=== PATIENT | female | born 1950 | race Caucasian/White ===

== ENCOUNTER → 2020-11-30 10:45 | Outpatient (CLI) | payer MEDICARE, SELFPAY | DX: Z00.00 Encounter for general adult medical examination without abnormal findings (principal) ==

== ENCOUNTER 2022-01-17 12:19 | Outpatient (CLI) | payer MEDICARE, SELFPAY ==
[2022-01-17 13:30] LABS: Absolute Lymphocyte Count 3.15 X10^3/uL (0.83-4.51); Absolute Neutrophil Count 6.3 X10^3/uL (2.0-7.7); Basophil# 0.07 X10^3/uL; Basophil% 0.7 % (0-1); Eosinophils% 2.8 % (0-5); Hemoglobin 14.7 g/dL (12.0-15.0); Lymphocyte # 3.15 X10^3/ul (0.83-4.51); Lymphocyte % 29.9 % (19-41); Mean Corp Hgb Conc 33.4 g/dL (32-36); Mean Corpuscular Hgb 31.5 pg (27.0-32.0); Mean Corpuscular Volume 94.2 fL (81-99); Monocyte# 0.69 X10^3/uL; Monocyte% 6.5 % (0-10); NRBC Flagged by Analyzer 0 % (0-5); Neutrophil % 59.8 % (47-70); Platelet Count 281 K/mm3 (150-450); RBC Distribution Width CV 12.4 % (11.6-14.6); RBC Distribution Width SD 43.3 fl (35.1-43.9); Red Blood Count 4.67 M/mm3 (4.2-5.4); White Blood Count 10.5 K/mm3 (4.4-11.0)
[2022-01-17 14:02] LABS: ALB/GLOB Ratio 0.8 RATIO (0.9-2.4); AST(SGOT) 16 U/L (15-37); Alanine Aminotransfer ALT/SGPT 21 U/L (13-56); Albumin, Serum 3.3 g/dL (3.2-5.0); Alkaline Phosphatase 71 U/L (45-117); Anion Gap 4 (5-15); BUN 15 mg/dL (7-18); BUN/Creat Ratio 23.4 RATIO (10-20); Calcium,Total 8.8 mg/dL (8.5-10.1); Chloride 106 mmol/L (98-107); Cholesterol 179 mg/dL (200); Creatinine, Serum 0.64 mg/dL (0.55-1.02); EST Glomerular Filtration Rate 96 mL/min (>60); Est Glom Filt Rate - Afr Amer 117 mL/min (>60); Globulin 4.1 g/dL (2.2-4.2); Glucose 90 mg/dL (74-106); High Density Lipoprotein 43 mg/dL; Potassium 4.1 mmol/L (3.5-5.1); Protein, Total 7.4 g/dL (6.4-8.2); Sodium Level 141 mmol/L (136-145); Triglycerides 98 mg/dL; Very Low Density Lipoprotein 20 mg/dL (5-40)
== END 2022-01-17 23:59 | disposition home or self-care (01) ==
LOC: LAB 12:20
PROVIDERS: Referring Provider Nurse Practitioner Adult Health; Visit Provider Nurse Practitioner Adult Health
DX: I10 Essential (primary) hypertension (principal)
CPT/HCPCS: 36415; 80053; 80061; 84443; 85025

== ENCOUNTER → 2023-03-16 | Outpatient (CLI) | payer MEDICARE, SELFPAY ==
[2023-03-16 14:59] LABS: Absolute Lymphocyte Count 2.09 X10^3/uL (0.83-4.51); Absolute Neutrophil Count 5.9 X10^3/uL (2.0-7.7); Basophil# 0.05 X10^3/uL; Basophil% 0.6 % (0-1); Eosinophil# 0.27 X10^3/uL; Hematocrit 42.1 % (37-47); Hemoglobin 13.1 g/dL (12.0-15.0); Lymphocyte # 2.09 X10^3/ul (0.83-4.51); Mean Corp Hgb Conc 31.1 g/dL (32-36); Mean Corpuscular Hgb 29.9 pg (27.0-32.0); Mean Corpuscular Volume 96.1 fL (81-99); Monocyte# 0.71 X10^3/uL; Monocyte% 7.8 % (0-10); NRBC Flagged by Analyzer 0 % (0-5); Neutrophil # 5.88 X10^3/uL (2.7-7.7); Neutrophil % 64.8 % (47-70); Platelet Count 370 K/mm3 (150-450); RBC Distribution Width CV 13.2 % (11.6-14.6); RBC Distribution Width SD 46.5 fl (35.1-43.9); Red Blood Count 4.38 M/mm3 (4.2-5.4); White Blood Count 9.1 K/mm3 (4.4-11.0)
[2023-03-16 15:32] LABS: ALB/GLOB Ratio 0.8 RATIO (0.9-2.4); AST(SGOT) 19 U/L (15-37); Alanine Aminotransfer ALT/SGPT 17 U/L (13-56); Albumin, Serum 3.1 g/dL (3.2-5.0); Alkaline Phosphatase 71 U/L (45-117); Anion Gap 6 (5-15); BUN 20 mg/dL (7-18); BUN/Creat Ratio 30.8 RATIO (10-20); Calcium,Total 8.8 mg/dL (8.5-10.1); Chloride 106 mmol/L (98-107); Cholesterol 155 mg/dL (200); Creatinine, Serum 0.65 mg/dL (0.55-1.02); EST Glomerular Filtration Rate 95 mL/min (>60); Est Glom Filt Rate - Afr Amer 115 mL/min (>60); Globulin 4.1 g/dL (2.2-4.2); Glucose 93 mg/dL (74-106); High Density Lipoprotein 45 mg/dL; Potassium 4.2 mmol/L (3.5-5.1); Protein, Total 7.2 g/dL (6.4-8.2); Sodium Level 142 mmol/L (136-145); Thyroid Stim Hormone (TSH) 0.79 uIU/mL (0.358-3.74); Triglycerides 92 mg/dL; Very Low Density Lipoprotein 18 mg/dL (5-40)
== END | disposition home or self-care (01) ==
LOC: LAB 13:30
PROVIDERS: Referring Provider Nurse Practitioner Family; Visit Provider Nurse Practitioner Family
DX: E78.5 Hyperlipidemia, unspecified (principal); I10 Essential (primary) hypertension; E55.9 Vitamin D deficiency, unspecified
CPT/HCPCS: 36415; 80053; 80061; 82306; 84443; 85025

== ENCOUNTER 2023-05-07 09:34 | Emergency (ER) | payer MEDICARE, SELFPAY ==
[2023-05-07 09:36] VITALS: BP 121/78; PULSE 76; RESP 14; TEMP 36.2; O2SAT 93; BMI 23.9
--- NOTE | 2023-05-07 10:17 | VDLE_ITS ---
Reason For Study: swelling Procedure LEFT This is a venous duplex using B-mode, color GSV is normal. flow and spectral Doppler. CFV is compressible, spontaneous, phasic, Exam performed portable in ED. competent, and demonstrates normal The exam was abbreviated due to the COVID 19 augmentation. protocol. FV is compressible, spontaneous, phasic, The exam was diagnostic. competent and demonstrates normal A preliminary report was called and/or faxed augmentation. to the pt's RN. POP V is compressible, spontaneous, phasic, competent and demonstrates normal augmentation. T/P Trunk is compressible. PTV is compressible. LT PerV is compressible. VL/Venous Duplex US, Unilateral Interpretation Summary Deep veins of the left lower extremity are patent and compressible segmentally. There is no evidence of left lower extremity deep vein thrombosis. The left great saphenous vein chalino ears patent and compressible segmentally. Ordering Physician: Jeff Simon Performed By: Narciso Muñiz RVT
--- NOTE | 2023-05-07 10:18 | EKG12_ITS ---
Test Reason : SOB Blood Pressure : / mmHG Vent. Rate : 074 BPM Atrial Rate : 074 BPM P-R Int : 156 ms QRS Dur : 072 ms QT Int : 386 ms P-R-T Axes : 026 070 043 degrees QTc Int : 428 ms Normal sinus rhythm Low voltage QRS Borderline ECG No previous ECGs available Confirmed by JOSHUA GARCIA, SCOTTIE ([id number]), online editor LUDIVINA LOPEZ ([id number]) on 05/19/2023 7:34:43 AM Referred By: Confirmed By:SCOTTIE LEWIS MD
--- NOTE | 2023-05-07 10:19 | CT_ITS ---
STUDY: CTA CHEST REASON FOR EXAM: Female, 72 years old. Pulmonary embolism RADIATION DOSAGE (If Supplied By Facility): CTDIvol = ( 8.02 ) mGy, DLP = ( 238.31 ) mGycm TECHNIQUE: The examination was performed with the intravenous administration of IV 100mL Isovue-370. Post-processing of the angiographic images was performed, with multiplanar reformation and 3D reconstruction. Individualized dose optimization techniques were used for this CT. COMPARISON: None. FINDINGS: Normal enhancement of the main pulmonary artery and right and left pulmonary arteries. Normal enhancement of the bilateral peripheral pulmonary arteries. There is no demonstrated pulmonary embolism. Normal thoracic aorta and visualized great vessels. There is no demonstrated aortic dissection. There are calcifications of the coronary arteries. Moderate cardiomegaly. Moderate size pericardial effusion. There is evidence of a right hilar mass with postobstructive atelectasis and pneumonitis in the right middle lobe and right lower lobe. Bilateral pulmonary nodules. Normal visualized trachea and bronchi. The lungs are well expanded. Bilateral pleural effusions right greater than left with a bibasilar atelectasis. Normal chest wall structures. There are degenerative changes of thoracic spine. 1.7 cm x 0.9 cm nodule in the left adrenal gland. CT/CTA Chest W/WO Contrast IMPRESSION: Bilateral pleural effusions right greater than left with bibasilar atelectasis. Right hilar mass with postobstructive pneumonitis and/or atelectasis involving the right middle lobe and right lower lobes. A neoplastic process should BE ruled out. Moderate-sized pericardial effusion. Electronically Signed: Stiven Philip MD at 12:04 EDT ,
--- NOTE | 2023-05-07 10:22 | ED.VIS.DYS ---
HPI History of Present Illness Chief Complaint: Shortness of Breath Informant: patient Onset/Context/Timing Onset: Month(s) Context: gradual Timing: Continuous Worsened by: - (Cold air) Relieved by: Nothing Associated Symptoms cough; Negative for rhinorrhea, post nasal drip, ear pain, fever, sore throat, chills, sweats, clear sputum, white sputum, yellow sputum or green sputum Chest Pain: Positive for None Narrative Narrative: Patient presents with shortness of breath that has been getting worse over the past few months. Patient states her breathing is worse when she is in cold air. Patient states nothing makes it better. Patient admits to a cough but denies any sputum. Patient states it is gradually gotten worse over the past few months. Patient states it is constant. Patient denies any fevers or chills. Patient denies any sore throat or rhinorrhea. Patient denies any chest pain. Patient states she was in the emergency department at [facility] 4 days ago. Patient states they told her she had anemia and a mass on her lung. Patient states that they wanted to transfer her to [facility] to get a venous duplex of her left lower extremity done. Patient did not want to go to [facility] at that time. Patient went home and then came back here today. PE Risk Factors: Positive for Cancer; Negative for OCP + Smoking + > 35, Prior DVT or PE, Recent immobilization, Recent surgery or Recent travel [facility] Medical History (Updated 05/07/23 @ 13:[address] Jeff Simon DO) Hypertension Allergy/AdvReac Type Severity Reaction Status Date / Time No Known Allergies Allergy Verified 05/07/23 09:36 Surgical History (Updated 05/07/23 @ 10:[address] Jeff Simon DO) Hx of appendectomy Hx of section Hx of dilation and curettage Hx of oophorectomy Hx of tonsillectomy Social History Smoking Status: Current every day smoker tobacco type: cigarettes ROS ROS ED Constitutional Constitutional ED: Denies chills or fever(s) Eyes Eyes: Denies blurry vision or change in vision ENT ENT ED: Denies rhinorrhea or sore throat Cardiovascular Cardiovascular: Denies chest pain or palpitations Respiratory/Chest Respiratory/Chest: Reports cough and dyspnea Gastrointestinal Gastrointestinal: Denies nausea or vomiting Genitourinary Genitourinary ED: Denies dysuria or hematuria Musculoskeletal Musculoskeletal: Reports neck pain; Denies back pain Integumentary Denies abscess or rash Neurologic Neurologic: Denies headache(s) or weakness Allergic/Immunologic Allergic/Immunologic ED: Denies mouth swelling or urticaria EXAM Physical Exam Const Vital Signs: 05/07/23 09:36 05/07/23 09:49 05/07/23 10:29 Temperature 97.1 F L Temperature Source Temporal Pulse Rate 76 73 Respiratory Rate 14 12 Respiratory Effort Short of Breath Respiratory Depth Normal Respiratory Pattern Normal Blood Pressure 121/78 H Blood Pressure Mean 92 Pulse Ox 93 Oxygen Delivery Method Room Air Positive well nourished and well developed General Appearance ED: well developed and NAD HEENT Reports moist mucous membranes Neck supple and no JVD Resp normal respiratory effort Auscultation: wheezes expiratory wheezes and throughout Cardio regular rate and regular rhythm GI normal to inspection, nondistended, normoactive bowel sounds and non-tender Palpation: soft Extremity normal to inspection General Extremety ED: Yes edema; Negative for tenderness General Extremity: edema left lower extremity mild Neuro oriented x3, CN's II-XII intact bilaterally and no sensory deficits noted Sensorium / Orientation: alert Motor Exam: strength 5/5 throughout Psych mental status grossly normal Skin no rashes or lesions noted MDM MDM MDM Narrative Medical decision making narrative: Differential diagnosis includes pulmonary embolism, pneumonia, pneumothorax, congestive heart failure, DVT, cardiac dysrhythmia, cardiac ischemia, anemia, and lung cancer. EKG will be obtained to assess for cardiac dysrhythmia and cardiac ischemia. CTA of the chest will be obtained to assess for pulmonary embolism, aortic dissection, and lung cancer. CBC will be obtained to assess for anemia and leukocytosis. Basic metabolic profile will be obtained to assess for renal function and electrolyte abnormality. BNP will be obtained to assess for congestive heart failure. Serum lactate will be obtained to assess for sepsis. High-sensitivity troponin will be obtained to assess for cardiac ischemia. Venous duplex of the left lower extremity will be obtained to assess for DVT. History & Record Review Discussion w/independent historian: Patient and Family Additional record(s) reviewed:: Prior labs Lab Data Attestation: I reviewed the patient's lab results. Lab results narrative: CBC was reviewed and was within normal limits. Basic metabolic profile was reviewed and was normal. Lactate was reviewed and was normal. High-sensitivity troponin was reviewed and was normal at 36. BNP was reviewed and was slightly elevated at 103. Labs: Laboratory Results - last 24 hr 05/07/23 05/07/23 05/07/23 09:58 10:25 10:57 WBC 10.2 RBC 4.51 Hgb 13.3 Hct 41.9 MCV 92.9 MCH 29.5 MCHC 31.7 L RDW Std Deviation 45.3 H RDW Coeff of Alyssa 13.4 Plt Count 406 MPV 10.6 Immature Gran % (Auto) 0.700 Neut % (Auto) 73.0 H Lymph % (Auto) 16.7 L Alexander % (Auto) 8.1 Eos % (Auto) 1.1 Baso % (Auto) 0.4 Absolute Neuts (auto) 7.5 Absolute Lymphs (auto) 1.71 Nucleated RBC % 0 Sodium 141 Potassium 4.1 Chloride 106 Carbon Dioxide 30.0 Anion Gap 5 BUN 16 Creatinine 0.62 Estim Creat Clear Calc 40.83 Est GFR (MDRD) Af Amer 120 Est GFR (MDRD) Non-Af 99 BUN/Creatinine Ratio 25.7 H Glucose 97 Lactic Acid Cancelled 0.9 Calcium 8.8 Troponin I High Sens 36 B-Natriuretic Peptide 103.0 H Radiography CTA PE Study: No Evidence of PE and No Evidence of Dissection Diagnostic Testing: Clinical Impression(s) from Imaging Studies Chest CTA 05/07/23 10:19 IMPRESSION: Bilateral pleural effusions right greater than left with bibasilar atelectasis. Right hilar mass with postobstructive pneumonitis and/or atelectasis involving the right middle lobe and right lower lobes. A neoplastic process should BE ruled out. Moderate-sized pericardial effusion. Electronically Signed: Stiven Philip MD at 12:04 EDT , CTA of the chest was obtained. There is a right hilar mass with postobstructive pneumonitis and/or atelectasis. This is most likely a neoplastic process. There are bilateral pleural effusions right greater than left and bibasilar atelectasis. There is a moderate-sized pericardial effusion. This was interpreted by the radiologist was also independently reviewed by myself. Venous duplex of the left lower extremity was obtained. There is no evidence of DVT. EKG Initial EKG: Attestation: I personally reviewed and interpreted this EKG as follows: Interpretation: Sinus Rhythm (74) and No Acute Injury Pattern Comments: EKG was obtained. On my independent interpretation, it showed a normal sinus rhythm with a rate of 74. MN interval, QRS interval, and QTc intervals were all normal. [place] was normal. There are no acute ST or T wave changes. There is low voltage across the precordial leads. Prior EKG tracings: not available for review Prior: No Prior Treatment and Re-Evaluation :: Patient was given a DuoNeb aerosol here. Patient stated that this made her cough more and did not help her breathing. Patient was advised of her findings. Case was discussed with Dr. Youngblood from pulmonology. He will follow-up with the patient as an outpatient. Patient was instructed to call his office tomorrow to schedule an appointment. Patient understood and was agreeable with the plan. All questions were answered. Discharge Plan Triage Chief Complaint: Shortness of Breath ED Provider: Jeff Simon Dx/Rx/DC Orders Clinical Impression: Pericardial effusion, Pleural effusion, Mass of right lung Instructions: Diagnosing Chest and Lung ..., ED Pleural Effusion [facility] Referrals: Jake Youngblood DO [Med Staff - Active Staff] - 3-5 Days [facility] - 5-7 Days Disposition Disposition: Home, Self Care
[2023-05-07] MEDS: Ipratropium/Albuterol Sulfate 3 ML AMPUL.NEB INHALATION (10:27)
[2023-05-07 10:29] VITALS: PULSE 73; RESP 12
[2023-05-07 10:45] LABS: Absolute Lymphocyte Count 1.71 X10^3/uL (0.83-4.51); Absolute Neutrophil Count 7.5 X10^3/uL (2.0-7.7); Basophil# 0.04 X10^3/uL; Basophil% 0.4 % (0-1); Eosinophil# 0.11 X10^3/uL; Eosinophils% 1.1 % (0-5); Hematocrit 41.9 % (37-47); Hemoglobin 13.3 g/dL (12.0-15.0); Lymphocyte # 1.71 X10^3/ul (0.83-4.51); Lymphocyte % 16.7 % (19-41); Mean Corp Hgb Conc 31.7 g/dL (32-36); Mean Corpuscular Hgb 29.5 pg (27.0-32.0); Mean Corpuscular Volume 92.9 fL (81-99); Mean Platelet Vol. 10.6 fl (6.2-12.0); Monocyte# 0.83 X10^3/uL; Monocyte% 8.1 % (0-10); NRBC Flagged by Analyzer 0 % (0-5); Neutrophil # 7.48 X10^3/uL (2.7-7.7); Platelet Count 406 K/mm3 (150-450); RBC Distribution Width CV 13.4 % (11.6-14.6); RBC Distribution Width SD 45.3 fl (35.1-43.9); Red Blood Count 4.51 M/mm3 (4.2-5.4); White Blood Count 10.2 K/mm3 (4.4-11.0)
[2023-05-07 10:55] LABS: Anion Gap 5 (5-15); BUN 16 mg/dL (7-18); BUN/Creat Ratio 25.7 RATIO (10-20); Calcium,Total 8.8 mg/dL (8.5-10.1); Chloride 106 mmol/L (98-107); Creatinine, Serum 0.62 mg/dL (0.55-1.02); EST Glomerular Filtration Rate 99 mL/min (>60); Est Glom Filt Rate - Afr Amer 120 mL/min (>60); Estimated Creatinine Clearance 40.83 ml/min; Glucose 97 mg/dL (74-106); Potassium 4.1 mmol/L (3.5-5.1); Sodium Level 141 mmol/L (136-145); Troponin-I HS 36 pg/mL (3.0-54.0)
[2023-05-07 11:30] LABS: Lactic Acid 0.9 mmol/L (0.4-1.9)
[2023-05-07 13:24] VITALS: BP 118/63; PULSE 74; RESP 18; O2SAT 94
== END 2023-05-07 13:26 | disposition home or self-care (01) ==
PROVIDERS: Emergency Provider Emergency Medicine; Visit Provider Emergency Medicine
DX: I31.39 Other pericardial effusion (noninflammatory) (principal); J90 Pleural effusion, not elsewhere classified; R91.8 Other nonspecific abnormal finding of lung field; F17.210 Nicotine dependence, cigarettes, uncomplicated
CPT/HCPCS: 71275; 80048; 83605; 83880; 84484; 85025; 93005; 93971; 94640; 99284; Q9967; A4216

== ENCOUNTER → 2023-05-14 | Outpatient (CLI) | payer MEDICARE, SELFPAY ==
[2023-05-14 11:25] LABS: Platelet Count 375 K/mm3 (150-450)
[2023-05-14 11:33] LABS: International Normalized Ratio 1.1
== END | disposition home or self-care (01) ==
PROVIDERS: Referring Provider Internal Medicine Critical Care Medicine; Visit Provider Internal Medicine Critical Care Medicine
DX: J90 Pleural effusion, not elsewhere classified (principal)
CPT/HCPCS: 36415; 85049; 85610

== ENCOUNTER → 2023-05-19 | Outpatient (CLI) | payer MEDICARE, SELFPAY ==
--- NOTE | 2023-05-19 12:26 | ECHOD_ITS ---
Reason For Study: PERICARDIAL EFFUSION Procedure This was a 2D Doppler, Color Flow transthoracic echocardiogram. Exam performed in department. Left Ventricle Normal LV size. Left ventricular systolic function is normal. The estimated ejection fraction is 60 %. No regional wall motion abnormalities noted. Right Ventricle Normal RV size. Normal systolic function. Atria Normal left atrium. Normal right atrium. Mitral Valve There is moderate mitral annular calcification. Tricuspid Valve Normal tricuspid valve. Mild to moderate (1-2+) tricuspid valve insufficiency. Pulmonary artery systolic pressure is 44 mmHg. Aortic Valve Normal aortic valve. Trisinus/trileaflet aortic valve. Pulmonic Valve Normal pulmonic valve. Great Vessels Normal aortic root. The pulmonary artery is normal size. Normal inferior vena cava. Pericardium/Pleural Moderate pericardial effusion. There are no echocardiographic indications of cardiac tamponade. MMode/2D Measurements & Calculations LVIDd: 4.0 cm IVSd: 1.1 cm LAV(MOD-bp): 48.0 ml LVIDs: 2.7 cm LVPWd: 0.74 cm LAV(MOD-bp) Indexed: 29.2 ml/m2 RVDd: 3.5 cm FS: 33.9 % LAV(MOD-sp2): 52.0 ml LAV(MOD-sp4): 41.8 ml SV(MOD-sp4): 41.5 ml LVAd ap4: 20.6 cm2 LVAd ap2: 24.7 cm2 LVLd ap4: 7.3 cm LVLd ap2: 7.3 cm EDV(MOD-sp4): 48.9 ml EDV(MOD-sp2): 70.5 ml EDV(sp4-el): 49.4 ml EDV(sp2-el): 71.2 ml LVAs ap4: 5.8 cm2 LVAs ap2: 7.6 cm2 LVLs ap4: 4.1 cm LVLs ap2: 6.1 cm ESV(MOD-sp4): 7.4 ml ESV(MOD-sp2): 10.0 ml ESV(sp4-el): 6.9 ml ESV(sp2-el): 8.1 ml EF(MOD-sp4): 84.9 % EF(MOD-sp2): 85.8 % EF(sp4-el): 86.0 % SV(MOD-sp2): 60.5 ml SV(sp4-el): 42.5 ml LA A4 area: 18.1 cm2 LA dimension(2D): 3.7 cm TAPSE: 2.8 cm RA A4 area: 17.8 cm2 Time Measurements MV dec time: 0.25 sec Doppler Measurements & Calculations MV E max don: 91.3 cm/sec Lat Peak E' Don: 4.8 cm/sec Med Peak E' Don: 5.9 cm/sec MV A max don: 125.5 cm/sec E/E' lat: 19.0 E/E' med: 15.5 MV E/A: 0.73 MV V2 max: 131.2 cm/sec MV P1/2t max don: 95.5 cm/sec Ao V2 max: 159.0 cm/sec MV max P.9 mmHg MV P1/2t: 90.3 msec Ao max P.1 mmHg MV V2 mean: 71.1 cm/sec MV dec slope: 309.7 cm/sec2 Ao V2 mean: 113.4 cm/sec MV mean P.4 mmHg Ao mean P.5 mmHg MV V2 VTI: 32.9 cm MVA(P1/2t): 2.4 cm2 Ao V2 VTI: 32.4 cm AV (velocity ratio): 1.1 LV V1 max: 155.1 cm/sec PA V2 max: 72.4 cm/sec TR max don: 300.4 cm/sec LV V1 max P.6 mmHg TR max P.1 mmHg LV V1 mean P.2 mmHg LV V1 mean: 108.9 cm/sec LV V1 VTI: 36.9 cm ECHO/Echo Complete Interpretation Summary Normal LV size. Left ventricular systolic function is normal. The estimated ejection fraction is 60 %. Moderate pericardial effusion. There are no echocardiographic indications of cardiac tamponade. Pulmonary artery systolic pressure is 44 mmHg. Ordering Physician: Jake Youngblood Referring Physician: Jake Youngblood Performed By: Elda Jordan RVT, RDCS and Student
== END | disposition home or self-care (01) ==
LOC: CVS 12:25
PROVIDERS: Referring Provider Internal Medicine Critical Care Medicine; Visit Provider Internal Medicine Critical Care Medicine
DX: I31.39 Other pericardial effusion (noninflammatory) (principal)
CPT/HCPCS: 93306

== ENCOUNTER 2023-05-22 16:12 | Inpatient (IN) | payer MEDICARE, SELFPAY ==
--- NOTE | 2023-05-20 08:40 | HP.PCM_ITS ---
HPI - General General Date of Service: 05/22/23 HPI Narrative The patient is a 72-year-old female who initially presented to the outpatient pulmonary clinic on May 14, 2023 in referral for the evaluation of a lung mass. The patient was evaluated in the emergency department on May 07, 2023 with reported shortness of breath. As part of her work-up in the emergency department, a CTA chest was obtained, which showed no evidence of pulmonary embolism, but did report moderate cardiomegaly, moderate size pericardial effusion, the right hilar lung mass with distal obstructive atelectasis and bilateral pleural effusions. The patient has noted slowly progressing shortness of breath and cough. Her appetite has been relatively poor and she stated that she has lost approximately 6 pounds over the course of the last 2-4 weeks. The patient does have a [id number] smoking history, but is cut back to smoking 0.5 packs of cigarettes per day. In addition to her personal smoking history, the patient did grow up in a smoking household. She was previously employed working at [employer], but more recently is employed at [employer]. 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 She does not currently utilize any inhalers at her baseline. [facility] Medical History (Updated 05/15/23 @ 00:11 by Pierre Snyder) Hypertension Home Medications atenolol 50 mg tablet 50 mg PO DAILY 05/14/23 [History Last Taken Unknown] Allergy/AdvReac Type Severity Reaction Status Date / Time No Known Allergies Allergy Verified 05/07/23 09:36 Surgical History (Updated 05/07/23 @ 10:[address] Jeff Simon DO) Hx of appendectomy Hx of section Hx of dilation and curettage Hx of oophorectomy Hx of tonsillectomy Social History Smoking Status: Current every day smoker tobacco type: cigarettes ROS ROS Narrative 10 systems were reviewed with pertinent positives as noted in the HPI above. Physical Exam Const alert, oriented x3 and no apparent distress General Appearance: cooperative HEENT normocephalic and head/scalp atraumatic Eyes PERRL and EOMs intact bilaterally Neck supple General: trachea midline Resp normal respiratory effort Auscultation: Negative for rales, rhonchi or wheezes Cardio regular rate and regular rhythm GI normal to inspection, nondistended, normoactive bowel sounds Extremity no clubbing, cyanosis or edema Skin General Skin Exam: no breakdown Neuro no focal motor deficits and no sensory deficits noted Psych cooperative and affect normal Assessment & Plan Assessment/Plan (1) Hilar mass: PLAN: The patient presented to the pulmonary medicine clinic with progressive shortness of breath and cough following recent emergency department visit on May 07, during which time, a CTA chest was obtained. That imaging study dem onstrated the presence of a right hilar lung mass with subsequent postobstructive atelectasis, bilateral pleural effusions and a moderate size pericardial effusion. In light of the patient's tobacco abuse history, these findings would certainly be concerning for an underlying primary lung malignancy. I explained to the patient the findings noted on CT imaging and questions were answered accordingly. I did formally recommend that the patient proceed with a mediastinal biopsy via EBUS to facilitate a tissue diagnosis. Risks and benefits of the proposed procedure were discussed with the patient at length. The patient is in agreement to proceed.
[2023-05-22] VITALS (23 sets, daily range): BP systolic 104–178; BP diastolic 53–115; PULSE 72–96; RESP 16–20; TEMP 36.6–37.6; O2SAT 90–95; BMI 24.0; BMI 24.7
--- NOTE | 2023-05-22 | IMM_PTH ---
PATIENT: LAURA HUSAIN LOC: MS3 U#:[id number] AGE/SX: 72/F ROOM: MS309 RE05/23/[address]: Dr. Cassandra Lay MD : 1950 BED: 1 DIS: 05/26/2023 SPEC #: [id number] RECD: 05/27/23 10:26 STATUS: ETELVINA REQ #: [id number] NEY: 05/22/23 00:[address]: Jake Youngblood DEPT: IMMUNOHISTOCHEMISTRY RECD BY: Michelle Min ENTERED: 05/27/23 10:28 SP TYPE: IMMUNO OTHR DR: MD Dr. Haroon Babb MD Dr. Prakash Chand, MD Dr. Paige Pierce, MD Dr. Tanmay Panchabhai, MD Christina Muller SANITARIAN-C [facility] Tissues: Lung, NOS Procedures: CK5-6 (add) TTF1 (add) P40 (add) CK7 (initial) PHYSICIAN & [address] [address] SPECIMEN INFORMATION: Tissue Source: Hilar lung mass Clinical Info: Hilar lung mass Specimen Number: [id number] CPT code: 08087, 33410 x3 METHODOLOGY: Deparaffinized sections of prefer/formalin-fixed tissue or PAP/DQ stained slides are incubated with monoclonal/polyclonal antibodies/oligonucleotide probes. Localization is made via biotin free immunoperoxidase method. Appropriate controls are performed and reacted as expected. Results on target cell population are indicated in the following table: RESULTS: ANTIBODY / CLONE RESULT CK7 (OV-TL12/30) positive TTF-1 (8G7G3/1) negative CK5-6 (D5 & 1684) negative P40 (BC28) negative These tests were developed and their performance characteristics determined by [facility]. They may not have been cleared or approved by the U.S. Food and Drug Administration. The FDA has determined that such clearance or approval is not necessary. The above immunohistochemical/dualISH markers are ordered and reviewed by the Pathologist. INTERPRETATION: Hilar lung mass, biopsy: Non-small cell carcinoma. See comment. ZEENAT:marc 05/28/2023 Comment: The IHC profile is noncontributory for further classification of the tumor. Case has been reviewed in consultation with Dr. Hernandez who concurs with the above diagnosis. IDC:AM
--- NOTE | 2023-05-22 | LUNB_PTH ---
PATIENT: LAURA HUSAIN LOC: MS3 U#:[id number] AGE/SX: 72/F [place] [facility] [place]: Dr. Cassandra Lay MD : 1950 BED: 1 DIS: 05/26/2023 SPEC #: [id number] RECD: 05/22/23 13:56 STATUS: ETELVINA RENETTADev #: [id number] NEY: 05/22/23 00:[address]: Jake Youngblood DEPT: SURGICAL PATHOLOGY RECD BY: Efrain Aguayo ENTERED: 05/22/23 13:57 SP TYPE: LUNG BX OTHR DR: [facility] Tissues: Lung, NOS Procedures: Surgery Specimen Level IV HEADER OPERATION: Endobronchial ultrasound, biopsy, brushings PRE-OP DIAGNOSIS: Hilar lung mass TISSUE SUBMITTED: Hilar lung mass MICROSCOPIC DIAGNOSIS Hilar lung mass, endobronchial biopsy: Non-small cell carcinoma. See comment. ZEENAT:marc 05/25/2023 COMMENT The specimen predominantly consists of unremarkable bronchial tissue with small amount of tumor in the subepithelial tissue. Immunohistochemistry ([id number]) supports the above diagnosis and noncontributory for further classification of the tumor. Please make reference to corresponding cytology specimen ([id number]) EBUS, TBNA, site 7 and 10R with diagnosis of malignant cells present derived from non-small cell carcinoma. Case has been reviewed in consultation with Dr. Hernandez who concurs with the above diagnosis. IDC:AM MICROSCOPIC DESCRIPTION Slides are reviewed. GROSS DESCRIPTION Received in fixative is one container labeled with the patient's name and designated endobronchial biopsy bronchus intermedius. The specimen consists of multiple irregular fragments of light calloway soft tissue that in aggregate measure 1.0 x 0.3 x 0.1 cm. The specimen is totally submitted in one cassette. / ZEENAT:marc 05/22/2023 TC:0 CPT: 17237 ADDENDUM ADDENDUM ADDENDUM ADDENDUM ADDENDUM ADDENDUM ADDENDUM ADDENDUM ADDENDUM ADDENDUM ADDENDUM ADDENDUM ADDENDUM ADDENDUM ADDENDUM ADDENDUM ADDENDUM ADDENDUM ADDENDUM ADDENDUM 07/01/2023 09:28 ADDENDUM 07/01/2023 09:28 ADDENDUM 07/01/2023 09:28 ADDENDUM 07/01/2023 09:28 ADDENDUM 07/01/2023 09:28 PD-L1 (KEYTRUDA) IMMUNOHISTOCHEMICAL ANALYSIS FROM [facility] [facility] RESULTS: Tumor proportion score: 0% / Negative [facility] LUNG CANCER NGS REPORT FROM [facility] RESULT SUMMARY: Abnormal IMMUNOTHERAPY BIOMARKERS: Tumor Mutation [place]: Low (2.4 Mutations / MB) microsatellite instability: MSI Negative (3.25%) PERTINENT NEGATIVE RESULTS: The following genes are NEGATIVE for clinically relevant mutations. Mutational hotspots and surrounding exonic regions were interrogated for DNA level point mutations and indels (fusions not assayed). AKT1, ALK, ATR, BRAF, CHEK1, DDR2, EGFR, ERBB2, ERBB3, FGFR1, MAP2K1, MET, NRAS, NTRK1, PIK3CA, POLD1, POLE, ROS1, TERT, TP53 Please see complete report in e-chart or EMR
--- NOTE | 2023-05-22 | IMM_PTH ---
PATIENT: LAURA HUSAIN LOC: MS3 U#:[id number] AGE/SX: 72/F ROOM: MS309 RE05/23/[address]: Dr. Cassandra Lay MD : 1950 BED: 1 DIS: 05/26/2023 SPEC #: [id number] RECD: 05/25/23 13:26 STATUS: ETELVINA REQ #: [id number] NEY: 05/22/23 00:[address]: Jake Youngblood DEPT: IMMUNOHISTOCHEMISTRY RECD BY: Michelle Min ENTERED: 05/25/23 13:28 SP TYPE: IMMUNO OTHR DR: MD Dr. Haroon Babb MD Dr. Prakash Chand, MD Dr. Paige Pierce, MD Dr. Tanmay Panchabhai, MD Christina Muller, [employer] [facility] Tissues: F - Lung, NOS Procedures: RCC (add) NAPSIN A (add) CK20 (add) CK5-6 (add) CK7 (add) CK8 (add) HEP PAR (add) MD (add) TTF1 (add) Pankeratin (add) P40 (add) ER (initial) CK7 (initial) PHYSICIAN & [place] [id number] SPECIMEN INFORMATION: Tissue Source: F - EBUS, TBNA, site 10R, G - Washings fluid Clinical Info: Hilar mass Specimen Number: [id number] F & G CPT code: 19426 x2, 59504 x14 METHODOLOGY: Deparaffinized sections of prefer/formalin-fixed tissue or PAP/DQ stained slides are incubated with monoclonal/polyclonal antibodies/oligonucleotide probes. Localization is made via biotin free immunoperoxidase method. Appropriate controls are performed and reacted as expected. Results on target cell population are indicated in the following table: RESULTS: ANTIBODY / CLONE RESULT Block F ER (6F11) negative MD (1E2) negative AE1-3 (AE1/AE3/PCK26) positive CK7 (OV-TL12/30) positive CK8 (47vpdlI73) positive CK20 (KS20.8) negative TTF-1 (8G7G3/1) negative Napsin A (Rabbit Polyclonal) negative HepPar (OCh1E5) negative RCC (PN-15) negative CK5-6 (D5 & 1684) negative P40 (BC28) negative Block G CK7 (OV-TL12/30) positive TTF-1 (8G7G3/1) negative CK5-6 (D5 & 1684) negative P40 (BC28) negative These tests were developed and their performance characteristics determined by [facility]. They may not have been cleared or approved by the U.S. Food and Drug Administration. The FDA has determined that such clearance or approval is not necessary. The above immunohistochemical/dualISH markers are ordered and reviewed by the Pathologist. INTERPRETATION: Minesh HYLTON, TBNA, site 10R (cell block): Malignant cells present derived from non-small cell carcinoma. See comment. G. Washings fluid (cell block): Malignant cells present derived from non-small cell carcinoma. See comment. SJ:marc 05/28/2023 Comment: The IHC profile is noncontributory for further classification of the tumor. Case has been reviewed in consultation with Dr. Hernandez who concurs with the above diagnosis. IDC:AM
--- NOTE | 2023-05-22 | ASPIG_PTH ---
PATIENT: LAURA HUSAIN LOC: MS3 U#:[id number] AGE/SX: 72/F [place] [facility] [place]23/[address]: Dr. Cassandra Lay MD : 1950 BED: 1 DIS: 05/26/2023 SPEC #: [id number] RECD: 05/22/23 13:57 STATUS: ETELVINA REDev #: [id number] NEY: 05/22/23 00:[address]: Jake Youngblood DEPT: CYTOLOGY RECD BY: Efrain Aguayo ENTERED: 05/22/23 13:58 SP TYPE: ASP OUT OTHR DR: [facility] Tissues: A - Lung, NOS B - Lung, NOS C - Lung, NOS D - Lung, NOS E - Lung, NOS F - Lung, NOS G - Lung, NOS H - Lung, NOS I - Lung, NOS Procedures: FNA Specimen Adequacy Special Stain Group II Surgery Specimen Level IV Cytology Other HEADER OPERATION: Endobronchial ultrasound, biopsy, brushings PRE-OP DIAGNOSIS: Hilar mass TISSUE SUBMITTED: A - EBUS, TBNA, site 7 #1, B - EBUS, TBNA, site 7 #2, C - EBUS, TBNA, site 10R #3, D - EBUS, TBNA, site 10R #4, E - EBUS, TBNA, site 7, F - EBUS, TBNA, site 10R, G - Wash, H - [place], I - Lung brushings x3 slides DIAGNOSIS CYTOLOGY A. EBUS, TBNA, site 7 #1 (smears): Atypical cells noted. B. EBUS, TBNA, site 7 #2 (smears): Respiratory epithelial cells noted. Negative for malignant cells. C. EBUS, TBNA, site 10R #3 (smears): Positive for malignant cells derived from non-small cell carcinoma. D. EBUS, TBNA, site 10R #4 (smears): Positive for malignant cells derived from non-small cell carcinoma. E. EBUS, TBNA, site 7 fluid (cell block): Malignant cells present derived from non-small cell carcinoma. See comment. F. EBUS, TBNA, site 10R fluid (cytospin and cell block): Malignant cells present derived from non-small cell carcinoma. See comment. G. Washings fluid (cytospin and cell block): Malignant cells present derived from non-small cell carcinoma. See comment. H. [place] fluid (cytospin and cell block): Rare atypical cells noted. I. Lung, brushings (smears): Rare atypical cells noted. SJ:marc 05/25/2023 COMMENT The specimen is evaluated at the time of procedure by Dr. Flores. Rapid On-Site Evaluation: A. EBUS, TBNA, site 7 #1: Atypical cells noted. B. EBUS, TBNA, site 7 #2: Respiratory epithelial cells noted. Negative for malignant cells. C. EBUS, TBNA, site 10R #3: Positive for malignant cells derived from non-small cell carcinoma. D. EBUS, TBNA, site 10R #4: Positive for malignant cells derived from non-small cell carcinoma. E. Respiratory epithelial cells and lymphocytes are also noted. F & G. Immunohistochemistry ([id number]) supports the above diagnosis and non-contributory for further classification of the tumor. Marker studies on the tumor can be performed if clinically indicated. Please notify the laboratory if they are needed. Please correlate with corresponding surgical specimen ([id number]) hilar lung mass, endobronchial biopsy with diagnosis of non-small cell carcinoma. Case has been reviewed in consultation with Dr. Hernandez who concurs with the above diagnosis. IDC:AM CYTOLOGY STUDY Slides are reviewed. CYTOLOGY GROSS A - Received labeled with the patient's name and and designated EBUS, TBNA, site 7 #1. The specimen consists of two stained smears for CHARLY (Rapid On-Site Evaluation). B - Received labeled with the patient's name and and designated EBUS, TBNA, site 7 #2. The specimen consists of two stained smears for CHARLY. C - Received labeled with the patient's name and and designated EBUS, TBNA, site 10R #3. The specimen consists of two stained smears for CHARLY. D - Received labeled with the patient's name and and designated EBUS, TBNA, site 10R #4. The specimen consists of two stained smears for CHARLY. E - Received in RPMI is 20 ml of pink, needle rinsed fluid labeled with the patient's name and and designated EBUS, TBNA, site 7. The specimen is submitted for cell block preparation. F - Received in RPMI is 20 ml of pink, needle rinsed fluid labeled with the patient's name and and designated EBUS, TBNA, site 10R. The specimen is submitted for cell block preparation. G - Received is 60 ml of red cloudy fluid labeled with the patient's name and and designated per the requisition as lung. Submitted for cytology preparation including cell block. H - Received is a metallic endoscopic cytobrush with adherent minute fragments of calloway-red tissue brush in 2 ml of clear red fluid and labeled with the patient's name and and designated per the requisition as brush. The material is dislodged from the brush and submitted for cytology preparation including cell block. I - Received are three smears labeled with the patient's name and designated per the requisition as lung. Submitted for staining. / ZEENAT:marc 05/22/2023 TC:0 CPT: 60900 x2, 81395 x4, 70852 x4, 92691, 71021 x2
[2023-05-22] MEDS: Lactated Ringers 1,000 ML 15 ML IV (10:43)
[2023-05-22] MEDS: Ipratropium/Albuterol Sulfate 3 ML AMPUL.NEB INHALATION ×3 (11:12→19:35)
[2023-05-22] MEDS: Lidocaine Jelly 2% 20 ML Syringe (URO-JET) 1 APPLIC (12:15)
--- NOTE | 2023-05-22 12:55 | OP.BRONCH_ITS ---
Patient Name: Nela Davis Procedure Date: 05/22/2023 11:44 AM Date of : 1950 Age: 72 Procedure: Bronchoscopy Indications: Mediastinal adenopathy, Lung mass suspicious for cancer Providers: Jake Youngblood MD Referring MD: Jake Youngblood MD Complications: No immediate complications Procedure: Pre-Anesthesia Assessment: - A History and Physical has been performed. Patient meds and allergies have been reviewed. The risks and benefits of the procedure and the sedation options and risks were discussed with the patient. All questions were answered and informed consent was obtained. Patient identification and proposed procedure were verified prior to the procedure by the physician and the nurse in the procedure room. Mental Status Examination: alert and oriented. Airway Examination: normal oropharyngeal airway. Respiratory Examination: poor air movement. CV Examination: normal. ASA Grade Assessment: III - A patient with severe systemic disease. After reviewing the risks and benefits, the patient was deemed in satisfactory condition to undergo the procedure. The anesthesia plan was to use general anesthesia. Immediately prior to administration of medications, the patient was re-assessed for adequacy to receive sedatives. The heart rate, respiratory rate, oxygen saturations, blood pressure, adequacy of pulmonary ventilation, and response to care were monitored throughout the procedure. The physical status of the patient was re-assessed after the procedure. After I obtained informed consent, the scope was passed under direct vision. Throughout the procedure, the patient's blood pressure, pulse, and oxygen saturations were monitored continuously. The bronchoscope was introduced through the mouth, via laryngeal mask airway and advanced to the tracheobronchial tree. The procedure was accomplished without difficulty. The patient tolerated the procedure well. Findings: The laryngeal mask airway is in good position. The vocal cords appear normal. The subglottic space is normal. The trachea is of normal caliber. The parisa is sharp. The tracheobronchial tree of the left lung was examined to at least the first subsegmental level. Bronchial mucosa and anatomy are normal; there are no endobronchial lesions, and no secretions. Right Lung Abnormalities: Extrinsic compression was found in the bronchus intermedius. The airway lumen is nearly occluded. The lesion was not traversed. Endobronchial biopsies were performed in the bronchus intermedius using forceps and sent for routine cytology. Two samples were obtained. Guided protected brushings were obtained in the bronchus intermedius with a cytology brush and sent for routine cytology. One sample was obtained. The scope was withdrawn and replaced with the EBUS bronchoscope to accomplish the ultrasound examination. Lymph Nodes: An endobronchial ultrasound endoscope was utilized to systematically examine the subcarinal mediastinum (level 7) and right hilar region (level 10R) in order to assist with guiding the biopsy needle. Lymph node sizing was performed via endobronchial ultrasound for suspected lung cancer. Sampling by transbronchial needle aspiration was also performed using an Olympus EBUS-TBNA 21 gauge needle in the subcarinal mediastinum (level 7) and right hilar region (level 10R) and sent for routine cytology. - The 7 (subcarinal) node was evaluated. Two samples with the needle were obtained. - The 10R (hilar) node was evaluated. Two samples with the needle were obtained. Lymph Nodes: Preliminary cytology was suggestive of non small cell carcinoma (final results are pending) in the right hilar region (level 10R). Impression: - Mediastinal adenopathy - Lung mass suspicious for cancer - The airway examination of the left lung was normal. - Extrinsic compression was found in the bronchus intermedius. - An endobronchial biopsy was performed. - Protected brushings were obtained. - Endobronchial ultrasound was performed. - Lymph node sampling was performed. - Preliminary cytology was suggestive of non small cell carcinoma in node level 10R (final results are pending). Recommendation: - Await biopsy results. Procedure Code(s): --- Professional --- 40857, Bronchoscopy, rigid or flexible, including fluoroscopic guidance, when performed; with endobronchial ultrasound (EBUS) guided transtracheal and/or transbronchial sampling (eg, aspiration[s]/biopsy[ies]), one or two mediastinal and/or hilar lymph node stations or structures 63936, Bronchoscopy, rigid or flexible, including fluoroscopic guidance, when performed; with bronchial or endobronchial biopsy(s), single or multiple sites 01778, Bronchoscopy, rigid or flexible, including fluoroscopic guidance, when performed; with brushing or protected brushings Diagnosis Code(s): --- Professional --- R59.0, Localized enlarged lymph nodes R91.8, Other nonspecific abnormal finding of lung field CPT copyright 2017 [employer]. All rights reserved. The codes documented in this report are preliminary and upon sales and service associate review may be revised to meet current compliance requirements. DO Jake Forman MD 05/22/2023 12:54:35 PM This report has been signed electronically. Number of Addenda: 0 Note Initiated On: 05/22/2023 11:44 AM
[2023-05-22 13:01] LABS: Cytology, Body Fluid / CSF SEE PATHOLOGY REPORT
--- NOTE | 2023-05-22 14:42 | SUR.PHASEI ---
Attempted to wean pt off oxygen. Pt dropped to 73% on room air. Oxygen re-applied.
--- NOTE | 2023-05-22 14:54 | SUR.PHASEI ---
Attempted to wean pt off oxygen. Pt on room air for 10 minutes. O2 levels dropped to 73%. 5L NC reapplied. Pt O2 levels back up to 94%.
--- NOTE | 2023-05-22 16:19 | PCM.HP.STD ---
HPI - General General Date of Admission: 05/22/23 Date of Service: 05/22/23 Chief Complaint: Shortness of breath increased after EBUS, hypoxia HPI Narrative LAURA HUSAIN, is a 72 F who had EBUS by Dr. Youngblood as evaluation for lung mass. Patient is a chronic smoker since teenage started 1 pack/day but now cut down to half pack cigarettes/day. Total 58 pack years of smoking. She has chronic progressive shortness of breath even at rest for last 2 to 3 months which gets worse even on minimal to mild exertion. She also had chronic severe persistent cough mainly dry which makes her short of breath. Denies chest pain tightness or pressure. Denies fever. She was evaluated by Dr. Youngblood in office on 05/14/2023. Prior to that, she had CTA chest in ED on May 07, 2023 for shortness of breath which showed no evidence of pulmonary embolism but right hilar lung mass with distal obstructive atelectasis, bilateral pleural effusion, moderate-sized pericardial effusion and moderate cardiomegaly. Patient was seen in PACU for hypoxia after getting rest. Most recent pulse ox 94% on 4 L of oxygen. She is not tachypneic. Hemodynamically stable. ON LICENSE OF [facility] Medical History Chronic cough High cholesterol History of echocardiogram History of edema History of steroid therapy Hypertension Smoker Wears dentures Home Medications atenolol 50 mg tablet 50 mg PO DAILY 05/14/23 [History Last Taken 05/22/23] Allergy/AdvReac Type Severity Reaction Status Date / Time No Known Allergies Allergy Verified 05/20/23 10:42 Surgical History History of cataract extraction with lens replacement Hx of appendectomy Hx of section Hx of dilation and curettage Hx of oophorectomy Hx of tonsillectomy Social History Smoking Status: Current every day smoker tobacco type: cigarettes Vital Signs Vital Signs Vital Signs: 05/22/23 10:46 05/22/23 10:46 05/22/23 11:11 Temperature 98.1 F Temperature Source Temporal Pulse Rate 72 Pulse Strength Respiratory Rate 18 18 Respiratory Pattern Normal Blood Pressure 128/70 H Blood Pressure Mean 89 Blood Pressure Source Monitor Blood Pressure Position Semi-Fowlers Blood Pressure Location Right Arm Baseline BP Pulse Ox 92 Oxygen Delivery Method Room Air Oxygen Flow Rate (L/min) 05/22/23 12:50 05/22/23 12:58 05/22/23 13:00 Temperature 99.7 F H Temperature Source Temporal Pulse Rate 76 87 Pulse Strength Normal (2+) Respiratory Rate 16 16 Respiratory Pattern Normal Blood Pressure 106/91 H 138/115 H Blood Pressure Mean 96 122 Blood Pressure Source Monitor Monitor Blood Pressure Position Semi-Fowlers Left Lateral Blood Pressure Location Right Arm Right Arm Baseline BP 128/70 128/70 Pulse Ox 92 94 Oxygen Delivery Method Simple Mask Simple Mask Oxygen Flow Rate (L/min) 6 6 05/22/23 13:15 05/22/23 13:30 05/22/23 13:40 Temperature Temperature Source Pulse Rate 89 86 79 Pulse Strength Respiratory Rate 16 18 18 Respiratory Pattern Blood Pressure 178/78 H 165/92 H 121/72 H Blood Pressure Mean 111 116 88 Blood Pressure Source Monitor Monitor Monitor Blood Pressure Position Semi-Fowlers Semi-Fowlers Semi-Fowlers Blood Pressure Location Right Arm Right Arm Right Arm Baseline BP 128/70 128/70 128/70 Pulse Ox 95 93 95 Oxygen Delivery Method Simple Mask Simple Mask Simple Mask Oxygen Flow Rate (L/min) 6 6 6 05/22/23 13:36 05/22/23 13:45 05/22/23 14:00 Temperature Temperature Source Pulse Rate 80 84 83 Pulse Strength Respiratory Rate 18 18 18 Respiratory Pattern Normal Blood Pressure 117/61 109/71 Blood Pressure Mean 79 83 Blood Pressure Source Monitor Monitor Blood Pressure Position Semi-Fowlers Semi-Fowlers Blood Pressure Location Right Arm Right Arm Baseline BP 128/70 128/70 Pulse Ox 92 90 Oxygen Delivery Method Simple Mask Nasal Cannula Oxygen Flow Rate (L/min) 3 3 05/22/23 14:15 05/22/23 14:30 05/22/23 14:45 Temperature Temperature Source Pulse Rate 87 78 76 Pulse Strength Respiratory Rate 18 18 16 Respiratory Pattern Blood Pressure 122/54 H 120/62 104/65 Blood Pressure Mean 76 81 78 Blood Pressure Source Monitor Monitor Monitor Blood Pressure Position Semi-Fowlers Semi-Fowlers Semi-Fowlers Blood Pressure Location Right Arm Right Arm Right Arm Baseline BP 128/70 128/70 128/70 Pulse Ox 91 94 93 Oxygen Delivery Method Nasal Cannula Nasal Cannula Nasal Cannula Oxygen Flow Rate (L/min) 4 4 4 05/22/23 15:00 05/22/23 15:15 05/22/23 15:30 Temperature Temperature Source Pulse Rate 76 76 76 Pulse Strength Respiratory Rate 18 16 18 Respiratory Pattern Blood Pressure 125/65 H 121/70 H 115/63 Blood Pressure Mean 85 87 80 Blood Pressure Source Monitor Monitor Monitor Blood Pressure Position Semi-Fowlers Semi-Fowlers Semi-Fowlers Blood Pressure Location Right Arm Right Arm Right Arm Baseline BP 128/70 128/70 128/70 Pulse Ox 91 90 91 Oxygen Delivery Method Nasal Cannula Nasal Cannula Nasal Cannula Oxygen Flow Rate (L/min) 4 4 4 05/22/23 15:45 05/22/23 16:00 Temperature Temperature Source Pulse Rate 82 72 Pulse Strength Respiratory Rate 18 18 Respiratory Pattern Blood Pressure 116/80 124/68 H Blood Pressure Mean 92 86 Blood Pressure Source Monitor Monitor Blood Pressure Position Semi-Fowlers Semi-Fowlers Blood Pressure Location Right Arm Right Arm Baseline BP 128/70 128/70 Pulse Ox 95 92 Oxygen Delivery Method Nasal Cannula Nasal Cannula Oxygen Flow Rate (L/min) 4 4 Weight Weight: 136 lb Body Mass Index (BMI) 24.0 Physical Exam Narrative General: Alert, Oriented x3, Cooperative HEENT: Atraumatic, PERRLA, EOMI, Normocephalic Oral: Oral mucosa dry. No Gingival or Mucosal Lesions/ Ulcerations Neck: Supple, No JVD, Negative Carotid Bruits Lungs: Air entry diminished in bilateral lung bases. Bilateral coarse rhonchi present. Mild hypoxia. No tachypnea Cardiovascular: Regular rate, Regular Rhythm, Normal S1, Normal S2, No murmurs Abdomen: Bowel Sounds Present, Soft, Non Tender, Non-Distended : No renal angle tenderness. No suprapubic tenderness. Extremities: No edema, Capillary Refill Less than 3 Seconds Skin: No rashes, No breakdown Musculoskeletal: No Tenderness to Palpation of Joints or Extremities. ROM full and intact. Neurological: Cranial nerves II-XII grossly intact, DTR 2+/4 and Symmetrical, Neuro grossly intact Psych/Mental Status: Normal Affect, Appropriate. Assessment & Plan Assessment/Plan (1) Hilar mass: (2) Hypoxia: PLAN: Plan This 72-year-old female being admitted for hypoxia after EBUS. 1. Right hilar mass, mediastinal adenopathy suspicious for cancer with postop hypoxia: [facility] He was showed mediastinal adenopathy, extrinsic compression in the bronchus intermedius. Preliminary cytology from right hilar lymph node sampling suggestive of non-small cell carcinoma. DuoNeb 1 dose now then as needed for shortness of breath. Mucinex DM, incentive spirometry/Pep. Wean oxygen. Home qualification oxygen testing before discharge. Discussed with Dr. Youngblood for overnight admission as an observation. 2. Clinical suspicion of COPD: Patient has chronic severe persistent cough with shortness of breath and smoking history since teenage suggestive of COPD. Never had PFT. PFTs ordered as an outpatient. Follow UP Dr. Youngblood in pulmonary clinic. 3. Hypertension: Patient on atenolol continued. Patient had 2D echo on 05/19/2023 reported EF 60%, moderate pericardial effusion no echo findings history of cardiac tamponade. 1-2+ TR. PASP 44 mmHg. 4. Increased left leg swelling: Patient had venous duplex on 05/11/2023 reported no evidence of left lower extremity DVT. No PE was found on recent CTA chest. VTE prophylaxis moderate risk: Lovenox 40 mg subcu daily. Living will/advanced directive/end of life care: Patient does not have living will or advanced directive. She does not have diabetes. Power of assistant city attorney for health. After discussion of benefits/risks procedures involved with full code, DNR CC arrest and DNR CC, the patient opted for DNRCC arrest with no intubation. Patient patient is very clear that she does not want artificial life support including intubation, tube feed, ventilator and/chest compression, central venous catheter, vasopressor and DC shock if needed Total time spent in [id number] encounter in discussion of advanced directive 17 minutes. Charges/Coding Visit Charges Inpatient E&M: 75235 Init Hosp L3 Procedures Hospitalists Procedures: 05506 Advncd Care Plan 30 Min
[2023-05-22] MEDS: Lactated Ringers 1,000 ML 75 ML IV (18:21)
[2023-05-22 18:30] LABS: Absolute Lymphocyte Count 0.69 X10^3/uL (0.83-4.51); Absolute Neutrophil Count 10.7 X10^3/uL (2.0-7.7); Basophil# 0.02 X10^3/uL; Basophil% 0.2 % (0-1); Hemoglobin 13.1 g/dL (12.0-15.0); Lymphocyte # 0.69 X10^3/ul (0.83-4.51); Lymphocyte % 5.9 % (19-41); Mean Corpuscular Hgb 29.4 pg (27.0-32.0); Mean Corpuscular Volume 92.1 fL (81-99); Mean Platelet Vol. 10.2 fl (6.2-12.0); Monocyte% 0.9 % (0-10); NRBC Flagged by Analyzer 0 % (0-5); Neutrophil # 10.73 X10^3/uL (2.7-7.7); Neutrophil % 92.5 % (47-70); Platelet Count 332 K/mm3 (150-450); RBC Distribution Width CV 14.3 % (11.6-14.6); Red Blood Count 4.45 M/mm3 (4.2-5.4); White Blood Count 11.6 K/mm3 (4.4-11.0)
[2023-05-22 18:38] LABS: Anion Gap 6 (5-15); BUN 18 mg/dL (7-18); BUN/Creat Ratio 25.6 RATIO (10-20); Calcium,Total 9.1 mg/dL (8.5-10.1); Chloride 104 mmol/L (98-107); EST Glomerular Filtration Rate 87 mL/min (>60); Est Glom Filt Rate - Afr Amer 105 mL/min (>60); Estimated Creatinine Clearance 40.83 ml/min; Glucose 184 mg/dL (74-106); Potassium 4.1 mmol/L (3.5-5.1); Sodium Level 138 mmol/L (136-145)
[2023-05-22] MEDS: guaiFENesin/D-Methorphan TAB.SR.12H 2 TABLET PO (19:57)
[2023-05-22] MEDS: Sodium Chloride 0.65% 1 SPRAY SPRAY.BTL 2 SPRAY NASAL (19:58)
[2023-05-22] MEDS: Ensure Plus High Protein 120 ML LIQUID PO (20:16)
[2023-05-23] VITALS (12 sets, daily range): BP systolic 125–142; BP diastolic 73–78; PULSE 23–92; RESP 18–32; TEMP 36.6–37.1; O2SAT 84–95
--- NOTE | 2023-05-23 06:24 | PCM.PN.INT ---
Assessment & Plan Assessment/Plan (1) Hypoxia: PLAN: Plan RECOMMENDATIONS: 1. Wean supplemental oxygen to maintain saturations at or above 90%. 2. Continue bronchodilator therapy. 3. Perform ambulatory oximetry this morning. 4. Set patient up with home-going supplemental O2. 5. Provided that the patient is able to ambulate with appropriate saturations on supplemental O2, she can be discharged home. We will follow-up with her next week in the pulmonary medicine clinic after the results of her EBUS are available. IMPRESSIONS: 1. Hypoxemia The patient was initially brought into the hospital overnight for observation following her EBUS procedure yesterday. Unfortunately, she was able to be weaned from oxygen following the procedure. She has extrinsic compression of her bronchus intermedius which is compromising distal airflow to her right middle and lower lobes. I do suspect that the biopsies performed in this region will likely lead to localized inflammation with blood clot as well, further compromising her respiratory status. I also suspect that she likely has a component of underlying obstructive lung disease. However, outpatient PFTs are still pending. For this reason, it is reasonable to continue bronchodilator therapy and wean supplemental oxygen as tolerated to maintain saturations at or above 90%. 2. 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 The patient will follow-up in the pulmonary medicine clinic next week for final review of her pathology results and to discuss potential treatment options. 3. Nicotine dependency Outpatient PFTs are pending. Continue bronchodilator therapy for now. This note was generated with [employer] dictation software. It may contain incorrect words, spelling, and punctuation that were not noted in checking the note before signing. Subjective Subjective The patient was seen and examined at the bedside this morning. Events from the last 24 hours have been reviewed. The patient is currently afebrile, hemodynamically stable and maintaining appropriate oxygen saturations on 5 L/min via nasal cannula. The patient underwent bronchoscopy yesterday and was noted to be hypoxemic postprocedure. Previously, during her last office visit in the pulmonary medicine clinic 9 days ago, she did not qualify for supplemental oxygen. This morning, the patient does report the ongoing presence of a cough, which is a chronic condition for her. Objective Data Objective Data The patient's most recent lab work, culture data and imaging studies have all been personally reviewed. Vital Signs: Vital Signs Temp Pulse Resp BP Pulse Ox O2 Del Method O2 Flow Rate 98 F 84 18 125/74 H 95 Nasal Cannula 5 05/23/23 05:42 05/23/23 05:42 05/23/23 05:42 05/23/23 05:42 05/23/23 05:42 05/23/23 05:42 05/23/23 05:42 Oxygen Flow Rate (L/min) 5 Oxygen Delivery Method Nasal Cannula Weight: 139 lb 14.4 oz Body Mass Index (BMI) 24.7 Intake & Output: Intake and Output for Last 24 Hours 05/21/23 05/22/23 05/23/23 23:59 23:59 23:59 Intake Total 1200.00 / 1200.00 853.75 / 853.75 Output Total 0 / 0 Balance 1200.00 / 1200.00 853.75 / 853.75 Lab / Micro Data Attestation: I reviewed the patient's lab results. 05/22/23 18:00 05/22/23 18:00 Labs: Laboratory Results - last 24 hr 05/22/23 18:00: WBC 11.6 H, RBC 4.45, Hgb 13.1, Hct 41.0, MCV 92.1, MCH 29.4, MCHC 32.0, RDW Std Deviation 48.0 H, RDW Coeff of Alyssa 14.3, Plt Count 332, MPV 10.2, Immature Gran % (Auto) 0.500, Neut % (Auto) 92.5 H, Lymph % (Auto) 5.9 L, [place] % (Auto) 0.9, Eos % (Auto) 0.0, Baso % (Auto) 0.2, Absolute Neuts (auto) 10.7 H, Absolute Lymphs (auto) 0.69 L, Nucleated RBC % 0, Sodium 138, Potassium 4.1, Chloride 104, Carbon Dioxide 28.0, Anion Gap 6, BUN 18, Creatinine 0.70, Estim Creat Clear Calc 40.83, Est GFR (MDRD) Af Amer 105, Est GFR (MDRD) Non-Af 87, BUN/Creatinine Ratio 25.6 H, Glucose 184 H, Calcium 9.1 Physical Exam Const alert and no apparent distress General Appearance: cooperative HEENT normocephalic and head/scalp atraumatic Eyes PERRL, EOMs intact bilaterally and conjunctivae normal Neck supple General: trachea midline Chest inspection of chest normal Resp Auscultation: diminished lung sounds Cardio regular rate and regular rhythm GI normal to inspection, nondistended, normoactive bowel sounds Extremity no clubbing, cyanosis or edema Skin no rashes or lesions noted Neuro CN's II-XII intact bilaterally, moves all extremities and no focal motor deficits Psych cooperative and affect normal Charges/Coding Visit Charges Inpatient E&M: 35931 Subs Hosp L2
[2023-05-23] MEDS: Ipratropium/Albuterol Sulfate 3 ML AMPUL.NEB INHALATION ×3 (06:52→19:04)
--- NOTE | 2023-05-23 09:08 | RAD_ITS ---
STUDY: X-RAY CHEST REASON FOR EXAM: Female, 72 years old. sob TECHNIQUE: PA and lateral views of the chest. COMPARISON: None. FINDINGS: The lungs are clear and expanded. Moderate right pleural effusion and small left pleural effusion with bibasilar atelectasis. There is moderate cardiac enlargement. Right hilar mass as seen on recent CT. Normal visualized pulmonary arteries. Normal visualized aortic arch and descending thoracic aorta. Normal visualized thoracic spine. Normal visualized ribs, clavicles, and shoulders. There is no demonstrated abnormality of the visualized soft tissue structures of the upper abdomen. RAD/Chest PA and Lateral IMPRESSION: 1. Moderate right pleural effusion and small left pleural effusion with bibasilar atelectasis. 2. Right hilar mass worrisome for bronchogenic carcinoma as seen on recent CT. Electronically Signed: Doc Soto MD at 9:37 EDT ,
[2023-05-23] MEDS: guaiFENesin/D-Methorphan TAB.SR.12H 2 TABLET PO ×2 (09:55→22:00)
[2023-05-23] MEDS: Ensure Plus High Protein 120 ML LIQUID PO ×2 (09:56→22:00)
[2023-05-23] MEDS: Atenolol 50 MG Tablet PO (09:57)
[2023-05-23] MEDS: 0.9% Saline Lock 10 ML Syringe IV ×2 (09:57→22:02)
--- NOTE | 2023-05-23 10:05 | CASEMGMT ---
Addendum entered by Yunier Ashton 05/23/23 11:03: Pt made aware to let staff know if cost of Rx @ discharge are not affordable. Addendum entered by Yunier Ashton 05/23/23 10:56: PCP: Latrice Maharaj Specialists: Dr Youngblood-pulmonology [facility]acy[facility] Insurance: MCR A/B Prescription Benefit:?none Living Will/HPOA:?Pt states she has LW but not HCPOA and she would like to complete that while @ [facility], if SW available. Keshia BERRY, made aware. Pt made aware, if SW unavailable to meet w/her while @ [facility], this can be completed as an OP w/SW. Pt voices appreciation. LNOK: Matthew, son. 6 siblings. Pt states only talks w/3 of them. Granddaughter. Living Arrangements: Lives alone in 2-story home w/2 steps to enter. Denies difficulty w/stairs. Indep w/ADL's and IADL's. Pt states she was very active up until recently and was still working 38 hrs/week. Transportation:?Pt states she has not driven for about 3 weeks. Her sister will take her home @ discharge and can take her to her appts. Pt made aware of [facility] Van transp and provided w/contact info. DME: ? Denies using any DME and denies needs.?As stated below, discussed Home O2 set-up process. ?Pt states no need for further DME at this time.? HHC/SNF: No hx of either. Pt denies needs at this time. Pt wishes to return home and states has no concerns with going home at time of discharge.? Follow for home oxygen needs and any further discharge planning/needs.? Pt voices no further concerns/needs at this time.? Advised pt to ask for?CM?if any further questions/concerns/needs arise.? Voices understanding. PLAN:??Home. Follow for Home Oxygen needs @ d/c. Aviva LERMAN?RN?CM Original Note: RN CM NOTE: RN CM to room. Introduced self and role. Pt resting in bed, awake, alert. Pt states she lives alone and is indep @ home. She states she has been OOB since being @ [facility] and feels steady on her feet and feels safe to return home. She does not have home O2 and does not have a pulse ox. Pt made aware home O2 amb testing to be completed prior to discharge. Discussed home O2 set-up process and questions answered. Discussed DME companies, made aware [employer] is affiliated w/[facility], and pt states to use [employer]. Pt states her income is very limited. Pulse ox given to Marli GARCIA, who will give to pt @ d/c and to instruct on use. Pt made aware this will be provided. Pt states she does not have Rx benefits. RADHA ESQUIVEL to do bailey check on meds @ discharge. Pt states she would like to get her meds @ [facility]. Pt plans to f/u with Dr Youngblood/pulmonology next week as an OP. She denies having other d/c planning needs or concerns. Aviva STEELE RN CM
--- NOTE | 2023-05-23 15:42 | PCM.PN.HOSP ---
Reason for Visit Reason for Visit: Diagnoses Hypoxemia (05/22/23) Other nonspecific abnormal finding of lung field (05/22/23) Subjective Subjective Follow-up for acute hypoxia. Patient required 6 L of oxygen. Objective Data Objective Data Vital Signs: Vital Signs Temp Pulse Resp BP Pulse Ox O2 Del Method O2 Flow Rate 98.6 F 23 L 25 H 139/78 H 91 Nasal Cannula 6 05/23/23 12:00 05/23/23 13:47 05/23/23 15:01 05/23/23 12:00 05/23/23 15:01 05/23/23 15:01 05/23/23 15:01 Oxygen Flow Rate (L/min) [ 7 AMBULATING with Oxygen #2] Oxygen Flow Rate (L/min) [ 5 AMBULATING with Oxygen #1] Oxygen Flow Rate (L/min) [At 5 REST with Oxygen] Oxygen Flow Rate (L/min) 6 Oxygen Delivery Method Nasal Cannula Weight: 139 lb 14.4 oz Body Mass Index (BMI) 24.7 Intake & Output: Intake and Output for Last 24 Hours 05/21/23 05/22/23 05/23/23 23:59 23:59 23:59 Intake Total 1200.00 / 1200.00 1168.75 / 1168.75 Output Total 0 / 0 Balance 1200.00 / 1200.00 1168.75 / 1168.75 Lab / Micro Data 05/22/23 18:00 05/22/23 18:00 Labs: Laboratory Results - last 24 hr 05/22/23 18:00: WBC 11.6 H, RBC 4.45, Hgb 13.1, Hct 41.0, MCV 92.1, MCH 29.4, MCHC 32.0, RDW Std Deviation 48.0 H, RDW Coeff of Alyssa 14.3, Plt Count 332, MPV 10.2, Immature Gran % (Auto) 0.500, Neut % (Auto) 92.5 H, Lymph % (Auto) 5.9 L, [place] % (Auto) 0.9, Eos % (Auto) 0.0, Baso % (Auto) 0.2, Absolute Neuts (auto) 10.7 H, Absolute Lymphs (auto) 0.69 L, Nucleated RBC % 0, Sodium 138, Potassium 4.1, Chloride 104, Carbon Dioxide 28.0, Anion Gap 6, BUN 18, Creatinine 0.70, Estim Creat Clear Calc 40.83, Est GFR (MDRD) Af Amer 105, Est GFR (MDRD) Non-Af 87, BUN/Creatinine Ratio 25.6 H, Glucose 184 H, Calcium 9.1 Radiography Diagnostic Testing: Radiology Impression Chest X-Ray 05/23/23 09:08 IMPRESSION: 1. Moderate right pleural effusion and small left pleural effusion with bibasilar atelectasis. 2. Right hilar mass worrisome for bronchogenic carcinoma as seen on recent CT. Electronically Signed: Doc Soto MD at 9:37 EDT , Physical Exam Narrative Seen and examined. Patient has never been on oxygen before. Currently on 6 L of oxygen. Mild shortness of breath on exertion. Hypoxia probably due to extrinsic compression of bronchus intermedius with possible inflammation due to bronchoscopy. Patient was evaluated by Dr. Youngblood. General: Alert, Oriented x3, Cooperative HEENT: Atraumatic, PERRLA, EOMI, Normocephalic Oral: Oral mucosa dry. No Gingival or Mucosal Lesions/ Ulcerations Neck: Supple, No JVD, Negative Carotid Bruits Lungs: Air entry diminished in bilateral lung bases. Bilateral coarse rhonchi present. No tachypnea but significant hypoxia. Cardiovascular: Regular rate, Regular Rhythm, Normal S1, Normal S2, No murmurs Abdomen: Bowel Sounds Present, Soft, Non Tender, Non-Distended : No renal angle tenderness. No suprapubic tenderness. Extremities: No edema, Capillary Refill Less than 3 Seconds Skin: No rashes, No breakdown Musculoskeletal: No Tenderness to Palpation of Joints or Extremities. ROM full and intact. Neurological: Cranial nerves II-XII grossly intact, DTR 2+/4 and Symmetrical, Neuro grossly intact Psych/Mental Status: Normal Affect, Appropriate. Assessment & Plan Assessment/Plan (1) Hilar mass: (2) Hypoxia: PLAN: Plan This 72-year-old female being admitted for hypoxia after EBUS. 1. Right hilar mass, mediastinal adenopathy suspicious for cancer with postop hypoxia: Patient is being admitted on Medrg floor. He was showed mediastinal adenopathy, extrinsic compression in the bronchus intermedius. Preliminary cytology from right hilar lymph node sampling suggestive of non-small cell carcinoma. DuoNeb 1 dose now then as needed for shortness of breath. Mucinex DM, incentive spirometry/Pep. Wean oxygen. Home qualification oxygen testing before discharge. Discussed with Dr. Youngblood for overnight admission as an observation. 05/23: Patient required 6 L of oxygen. Continuing incentive spirometry and Pep. On Mucinex DM for cough. Try to wean off oxygen. 2. Clinical suspicion of COPD: Patient has chronic severe persistent cough with shortness of breath and smoking history since teenage suggestive of COPD. Never had PFT. PFTs ordered as an outpatient. Follow UP Dr. Youngblood in pulmonary clinic. 05/23: Possible COPD exacerbation with increased hypoxia, shortness of breath and cough: Patient on bronchodilator, IV Solu-Medrol, and bronchopulmonary hygiene. 3. Hypertension: Patient on atenolol continued. Patient had 2D echo on 05/19/2023 reported EF 60%, moderate pericardial effusion no echo findings history of cardiac tamponade. 1-2+ TR. PASP 44 mmHg. 4. Increased left leg swelling: Patient had venous duplex on 05/11/2023 reported no evidence of left lower extremity DVT. No PE was found on recent CTA chest. VTE prophylaxis moderate risk: Lovenox 40 mg subcu daily. Living will/advanced directive/end of life care: Patient does not have living will or advanced directive. She does not have diabetes. Power of computer hardware developer for health. After discussion of benefits/risks procedures involved with full code, DNR CC arrest and DNR CC, the patient opted for DNRCC arrest with no intubation. Patient patient is very clear that she does not want artificial life support including intubation, tube feed, ventilator and/chest compression, central venous catheter, vasopressor and DC shock if needed Charges/Coding Visit Charges Inpatient E&M: 18247 Subs Hosp L2
[2023-05-23] MEDS: Enoxaparin 40 MG/0.4 ML Syringe SC (17:55)
[2023-05-23] MEDS: Methylprednisolone Sod Succ 40 MG/ML VIAL IV ×2 (19:00→22:01)
[2023-05-24] VITALS (8 sets, daily range): BP systolic 149–162; BP diastolic 70–86; PULSE 72–88; RESP 12–26; TEMP 36.6–36.9; O2SAT 92–94
[2023-05-24] MEDS: Acetaminophen 325 MG Tablet 650 MG PO ×3 (00:29→22:27)
[2023-05-24] MEDS: 0.9% Saline Lock 10 ML Syringe IV ×2 (06:04→22:26)
[2023-05-24] MEDS: Methylprednisolone Sod Succ 40 MG/ML VIAL IV ×3 (06:04→22:26)
--- NOTE | 2023-05-24 06:20 | PCM.PN.INT ---
Assessment & Plan Assessment/Plan (1) Hypoxia: PLAN: Plan RECOMMENDATIONS: 1. Wean supplemental oxygen to maintain saturations at or above 90%. 2. Continue bronchodilator therapy and steroids as ordered. 3. In light of the effusion noted on chest imaging, consider ultrasound-guided thoracentesis tomorrow. 4. Orders for pleural fluid studies have been placed. 5. Continue appropriate DVT prophylaxis. 6. Continue nicotine replacement therapy. 7. Perform ambulatory oximetry study prior to consideration for discharge home. IMPRESSIONS: 1. Hypoxemia The patient was initially admitted to the hospital following her EBUS procedure on May 22. Unfortunately, she was able to be weaned from oxygen following the procedure. She has extrinsic compression of her bronchus intermedius which is compromising distal airflow to her right middle and lower lobes. I do suspect that the biopsies performed in this region likely lead to localized inflammation with blood clot as well, further compromising her respiratory status. In addition, the patient has known pleural effusions, right greater than left and what is likely severe underlying obstructive lung disease. However, outpatient PFTs are still pending. For this reason, it is reasonable to continue scheduled bronchodilator therapy and IV steroids. Continue to wean supplemental oxygen to maintain saturations at or above 90%. Recommend ultrasound-guided thoracentesis tomorrow with pleural fluid analysis. 2. 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 The patient will follow-up in the pulmonary medicine clinic next week for final review of her pathology results and to discuss potential treatment options. 3. Nicotine dependency Outpatient PFTs are pending. Continue bronchodilator therapy for now, along with nicotine replacement therapy. This note was generated with [employer] dictation software. It may contain incorrect words, spelling, and punctuation that were not noted in checking the note before signing. Subjective Subjective The patient was seen and examined at the bedside this morning. Events from the last 24 hours have been reviewed. The patient is currently afebrile, hemodynamically stable and maintaining appropriate oxygen saturations on 6 L/min via nasal cannula. The patient apparently desaturated when ambulating yesterday in the hallway and required 7 L/min to maintain appropriate saturations. Chest x-ray demonstrated her previously known right hilar lung mass with associated atelectasis and a moderate right-sided pleural effusion. Objective Data Objective Data The patient's most recent lab work, culture data and imaging studies have all been personally reviewed. Vital Signs: Vital Signs Temp Pulse Resp BP Pulse Ox O2 Del Method O2 Flow Rate 97.8 F 88 12 162/79 H 92 Nasal Cannula 8 05/24/23 02:00 05/24/23 02:00 05/24/23 02:00 05/24/23 02:00 05/24/23 02:00 05/24/23 02:00 05/24/23 02:00 Oxygen Flow Rate (L/min) [ 7 AMBULATING with Oxygen #2] Oxygen Flow Rate (L/min) [ 5 AMBULATING with Oxygen #1] Oxygen Flow Rate (L/min) [At 5 REST with Oxygen] Oxygen Flow Rate (L/min) 8 Oxygen Delivery Method Nasal Cannula Weight: 139 lb 14.4 oz Body Mass Index (BMI) 24.7 Intake & Output: Intake and Output for Last 24 Hours 05/22/23 05/23/23 05/24/23 23:59 23:59 23:59 Intake Total 1200.00 / 1200.00 1168.75 / 1668.75 500 / 500 Output Total 0 / 0 Balance 1200.00 / 1200.00 1168.75 / 1668.75 500 / 500 Lab / Micro Data Attestation: I reviewed the patient's lab results. 05/22/23 18:00 05/22/23 18:00 Labs: Laboratory Results - last 24 hr 05/22/23 18:00: WBC 11.6 H, RBC 4.45, Hgb 13.1, Hct 41.0, MCV 92.1, MCH 29.4, MCHC 32.0, RDW Std Deviation 48.0 H, RDW Coeff of Alyssa 14.3, Plt Count 332, MPV 10.2, Immature Gran % (Auto) 0.500, Neut % (Auto) 92.5 H, Lymph % (Auto) 5.9 L, [place] % (Auto) 0.9, Eos % (Auto) 0.0, Baso % (Auto) 0.2, Absolute Neuts (auto) 10.7 H, Absolute Lymphs (auto) 0.69 L, Nucleated RBC % 0, Sodium 138, Potassium 4.1, Chloride 104, Carbon Dioxide 28.0, Anion Gap 6, BUN 18, Creatinine 0.70, Estim Creat Clear Calc 40.83, Est GFR (MDRD) Af Amer 105, Est GFR (MDRD) Non-Af 87, BUN/Creatinine Ratio 25.6 H, Glucose 184 H, Calcium 9.1 Radiography Diagnostic Testing: Radiology Impression Chest X-Ray 05/23/23 09:08 IMPRESSION: 1. Moderate right pleural effusion and small left pleural effusion with bibasilar atelectasis. 2. Right hilar mass worrisome for bronchogenic carcinoma as seen on recent CT. Electronically Signed: Doc Soto MD at 9:37 EDT , Physical Exam Const alert and no apparent distress General Appearance: cooperative HEENT normocephalic and head/scalp atraumatic Eyes PERRL, EOMs intact bilaterally and conjunctivae normal Neck supple General: trachea midline Chest inspection of chest normal Resp Auscultation: diminished lung sounds Cardio regular rate and regular rhythm GI normal to inspection, nondistended, normoactive bowel sounds Extremity no clubbing, cyanosis or edema Skin no rashes or lesions noted Neuro CN's II-XII intact bilaterally, moves all extremities and no focal motor deficits Psych cooperative and affect normal Charges/Coding Visit Charges Inpatient E&M: 46319 Subs Hosp L2
--- NOTE | 2023-05-24 07:03 | US_ITS ---
PROCEDURE: ULTRASOUND GUIDED THORACENTESIS. DATE: May 25, 2023. INDICATION: Female, 72 years old. Right pleural effusion PHYSICIAN: Stiven Philip M.D. PROCEDURE: The risks, benefits, and alternatives to the procedure were explained to the patient. The specific risks of bleeding, infection, and pneumothorax requiring chest tube insertion were discussed and accepted. Written informed consent was obtained. Ultrasonographic evaluation of the right lower pleural space was carried out. An adequate pocket was identified. The patient was placed in the sitting, upright position. The overlying skin was prepped and draped in sterile fashion. 1% lidocaine was administered subcutaneously for local anesthesia. Under ultrasound guidance, a 5 Georgian thoracentesis needle/catheter system was advanced into the right posterior lower pleural fluid collection. Approximately 1150 mL of lauren-colored fluid was drained. The catheter was removed, and a sterile dressing was applied. A specimen was collected and sent to the laboratory for analysis, as requested by the referring clinician. The patient tolerated the procedure well. A chest x-ray was ordered. US/Thoracentesis W US IMPRESSION: Ultrasound-guided right thoracentesis. Electronically Signed: Stiven Philip MD at 14:28 EDT ,
[2023-05-24] MEDS: Ipratropium/Albuterol Sulfate 3 ML AMPUL.NEB INHALATION ×3 (07:04→19:17)
--- NOTE | 2023-05-24 07:05 | PN.HOSP_ITS ---
Reason for Visit Reason for Visit: Diagnoses Hypoxemia (05/23/23) Other nonspecific abnormal finding of lung field (05/23/23) Subjective Subjective Follow-up for acute hypoxic respiratory failure. Objective Data Objective Data Vital Signs: Vital Signs Temp Pulse Resp BP Pulse Ox O2 Del Method O2 Flow Rate 97.8 F 88 12 162/79 H 92 Nasal Cannula 8 05/24/23 02:00 05/24/23 02:00 05/24/23 02:00 05/24/23 02:00 05/24/23 02:00 05/24/23 02:00 05/24/23 02:00 Oxygen Flow Rate (L/min) [ 7 AMBULATING with Oxygen #2] Oxygen Flow Rate (L/min) [ 5 AMBULATING with Oxygen #1] Oxygen Flow Rate (L/min) [At 5 REST with Oxygen] Oxygen Flow Rate (L/min) 8 Oxygen Delivery Method Nasal Cannula Weight: 139 lb 14.4 oz Body Mass Index (BMI) 24.7 Intake & Output: Intake and Output for Last 24 Hours 05/22/23 05/23/23 05/24/23 23:59 23:59 23:59 Intake Total 1200.00 / 1200.00 1168.75 / 1668.75 500 / 500 Output Total 0 / 0 Balance 1200.00 / 1200.00 1168.75 / 1668.75 500 / 500 Lab / Micro Data 05/22/23 18:00 05/22/23 18:00 Radiography Diagnostic Testing: Radiology Impression Chest X-Ray 05/23/23 09:08 IMPRESSION: 1. Moderate right pleural effusion and small left pleural effusion with bibasilar atelectasis. 2. Right hilar mass worrisome for bronchogenic carcinoma as seen on recent CT. Electronically Signed: Doc Soto MD at 9:37 EDT , Physical Exam Narrative Seen and examined. Patient oxygen requirement went up 8 L high flow oxygen. Patient is short of breath even at rest. Worse on walking. Repeat chest x-ray individually re viewed. Physical exam General: Alert, Oriented x3, Cooperative HEENT: Atraumatic, PERRLA, EOMI, Normocephalic Oral: Oral mucosa moist no Gingival or Mucosal Lesions/ Ulcerations Neck: Supple, No JVD, Negative Carotid Bruits Lungs: Air entry diminished predominantly in the right posterior lower half lung. Moderate right pleural effusion. Mild dyspnea at rest. Significant hypoxia. Cardiovascular: Regular rate, Regular Rhythm, Normal S1, Normal S2, No murmurs Abdomen: Bowel Sounds Present, Soft, Non Tender, Non-Distended : No renal angle tenderness. No suprapubic tenderness. Extremities: No edema, Capillary Refill Less than 3 Seconds Skin: No rashes, No breakdown Musculoskeletal: No Tenderness to Palpation of Joints or Extremities. ROM full and intact. Neurological: Cranial nerves II-XII grossly intact, DTR 2+/4 and Symmetrical, Neuro grossly intact Psych/Mental Status: Normal Affect, Appropriate. Assessment & Plan Assessment/Plan (1) Hilar mass: (2) Hypoxia: PLAN: Plan This 72-year-old female being admitted for hypoxia after EBUS. 1. Right hilar mass, mediastinal adenopathy suspicious for cancer with postop acute hypoxic respiratory failure and right moderate pleural effusion, small left pleural effusion with underlying atelectasis: Patient is being admitted on [facility] floor. He was showed mediastinal adenopathy, extrinsic compression in the bronchus intermedius. Preliminary cytology from right hilar lymph node sampling suggestive of non-small cell carcinoma. DuoNeb 1 dose now then as needed for shortness of breath. Mucinex DM, incentive spirometry/Pep. Wean oxygen. Home qualification oxygen testing before discharge. Discussed with Dr. Youngblood for overnight admission as an observation. 05/23: Patient required 6 L of oxygen. Continuing incentive spirometry and Pep. On Mucinex DM for cough. Try to wean off oxygen. Continue bronchodilator on IV steroid. 05/24: Patient requiring 8 L of oxygen at home. Repeat chest x-ray 05/23 shows similar right hilar mass with moderate right pleural effusion and small left effusion with bibasilar atelectasis similar to the recent CT findings. Ultrasound of the thoracocentesis ordered for tomorrow a.m. along with labs. Continue above treatment including bronchopulmonary hygiene. 2. Clinical suspicion of COPD: Patient has chronic severe persistent cough with shortness of breath and smoking history since teenage suggestive of COPD. Never had PFT. PFTs ordered as an outpatient. 05/23: Possible COPD exacerbation with increased hypoxia, shortness of breath and cough: Patient on bronchodilator, IV Solu-Medrol, and bronchopulmonary hygiene. 05/24: COPD exacerbation:Rapid SARS-CoV-2 antigen negative. Respiratory panel negative. Does not seem infectious cause of hypoxia. 3. Hypertension: Patient on atenolol continued. Patient had 2D echo on 05/19/2023 reported EF 60%, moderate pericardial effusion no echo findings history of cardiac tamponade. 1-2+ TR. PASP 44 mmHg. 4. Increased left leg swelling: Patient had venous duplex on 05/11/2023 reported no evidence of left lower extremity DVT. No PE was found on recent CTA chest. VTE prophylaxis moderate risk: Lovenox 40 mg subcu daily. Living will/advanced directive/end of life care: Patient does not have living will or advanced directive. She does not have diabetes. Power of household appliance repairer for health. After discussion of benefits/risks procedures involved with full code, DNR CC arrest and DNR CC, the patient opted for DNRCC arrest with no intubation. Patient patient is very clear that she does not want artificial life support including intubation, tube feed, ventilator and/chest compression, central venous catheter, vasopressor and DC shock if needed Charges/Coding Visit Charges Inpatient E&M: 01358 Subs Hosp L2
[2023-05-24] MEDS: BMX LIQUID 180 ML 15 ML PO ×2 (07:58→22:28)
[2023-05-24 09:36] LABS: ALB/GLOB Ratio 0.7 RATIO (0.9-2.4); Globulin 4.2 g/dL (2.2-4.2); LDH 358 U/L (84-246); Protein, Total 7.1 g/dL (6.4-8.2)
[2023-05-24 09:45] LABS: International Normalized Ratio 1.2; Prothrombin Time (Protime)PT. 14.8 SECONDS (11.7-14.9)
[2023-05-24 09:46] LABS: Partial Thromboplast Time 27.1 Seconds (24.1-36.2)
[2023-05-24] MEDS: Ensure Plus High Protein 120 ML LIQUID PO ×2 (10:23→14:23)
[2023-05-24] MEDS: guaiFENesin/D-Methorphan TAB.SR.12H 2 TABLET PO ×2 (10:23→22:26)
[2023-05-24] MEDS: Enoxaparin 40 MG/0.4 ML Syringe SC (10:24)
[2023-05-24] MEDS: Atenolol 50 MG Tablet PO (10:24)
[2023-05-25] VITALS (10 sets, daily range): BP systolic 140–162; BP diastolic 55–87; PULSE 62–83; RESP 18–24; TEMP 36.6–37.1; O2SAT 92–98
--- NOTE | 2023-05-25 | FLU_PTH ---
PATIENT: LAURA HUSAIN LOC: MS3 U#:[id number] AGE/SX: 72/F ROOM: [facility] [place] RE05/23/[address]: Dr. Cassandra Lay MD : [id number] BED: 1 DIS: 05/26/2023 SPEC #: [id number] RECD: 05/25/23 14:14 STATUS: ETELVINA REQ #: [id number] NEY: 05/25/23 00:[address]: Cassandra Lay DEPT: CYTOLOGY RECD BY: Kristina Soni ENTERED: 05/26/23 09:51 SP TYPE: Fluid OTHR DR: MD Dr. Jake Babb DO Dr. Lee Ann Baggott, MD Dr. Prakash Chand, MD Dr. Tanmay Panchabhai, MD Christina Muller, IRRIGATION DISTRICT MANAGER-C [facility] Tissues: THORACIC FLUID Procedures: Special Stain Group II Surgery Specimen Level IV Cytospin Fluid HEADER OPERATION: Ultrasound-guided thoracentesis right PRE-OP DIAGNOSIS: Right pleural effusion TISSUE SUBMITTED: Thoracentesis fluid for cytology DIAGNOSIS CYTOLOGY Thoracentesis fluid for cytology (cytospin and cell block): Negative for malignant cells. ZEENAT:marc 05/27/2023 COMMENT Please make reference to additional specimens [id number], hilar lung mass and [id number], EBUS, TBNA, site 7 & 10 R with diagnosis of non-small cell carcinoma. Case has been reviewed in consultation with Dr. Hernandez who concurs with the above diagnosis. IDC:AM CYTOLOGY STUDY Slides are reviewed. CYTOLOGY GROSS Received is 80 ml of yellow cloudy fluid labeled with the patient's name and and designated per the requisition as thoracentesis. Submitted for cytology preparation including cell block. / marc 05/26/2023 TC:5 CPT: 68589, 67331
[2023-05-25] MEDS: Acetaminophen 325 MG Tablet 650 MG PO ×3 (05:45→22:57)
[2023-05-25] MEDS: BMX LIQUID 180 ML 15 ML PO (05:46)
[2023-05-25] MEDS: 0.9% Saline Lock 10 ML Syringe IV (05:47)
[2023-05-25] MEDS: Methylprednisolone Sod Succ 40 MG/ML VIAL IV ×3 (05:47→22:48)
[2023-05-25 06:06] LABS: Absolute Lymphocyte Count 0.97 X10^3/uL (0.83-4.51); Absolute Neutrophil Count 17.9 X10^3/uL (2.0-7.7); Basophil# 0.03 X10^3/uL; Basophil% 0.2 % (0-1); Hematocrit 43.1 % (37-47); Hemoglobin 13.5 g/dL (12.0-15.0); Lymphocyte # 0.97 X10^3/ul (0.83-4.51); Lymphocyte % 4.9 % (19-41); Mean Corp Hgb Conc 31.3 g/dL (32-36); Mean Corpuscular Hgb 28.9 pg (27.0-32.0); Mean Corpuscular Volume 92.3 fL (81-99); Mean Platelet Vol. 10.3 fl (6.2-12.0); Monocyte# 0.66 X10^3/uL; Monocyte% 3.3 % (0-10); NRBC Flagged by Analyzer 0 % (0-5); Neutrophil # 17.87 X10^3/uL (2.7-7.7); Neutrophil % 90.4 % (47-70); Platelet Count 376 K/mm3 (150-450); RBC Distribution Width CV 14.1 % (11.6-14.6); RBC Distribution Width SD 47.6 fl (35.1-43.9); Red Blood Count 4.67 M/mm3 (4.2-5.4); White Blood Count 19.8 K/mm3 (4.4-11.0)
[2023-05-25 06:44] LABS: ALB/GLOB Ratio 0.6 RATIO (0.9-2.4); Anion Gap 5 (5-15); BUN 28 mg/dL (7-18); BUN/Creat Ratio 47.7 RATIO (10-20); Calcium,Total 9.1 mg/dL (8.5-10.1); Chloride 104 mmol/L (98-107); Creatinine, Serum 0.59 mg/dL (0.55-1.02); EST Glomerular Filtration Rate 106 mL/min (>60); Est Glom Filt Rate - Afr Amer 129 mL/min (>60); Estimated Creatinine Clearance 40.83 ml/min; Globulin 4.4 g/dL (2.2-4.2); Glucose 134 mg/dL (74-106); LDH 241 U/L (84-246); Potassium 4.2 mmol/L (3.5-5.1); Protein, Total 7.2 g/dL (6.4-8.2); Sodium Level 138 mmol/L (136-145)
[2023-05-25] MEDS: Ipratropium/Albuterol Sulfate 3 ML AMPUL.NEB INHALATION ×3 (07:02→19:41)
[2023-05-25] MEDS: guaiFENesin/D-Methorphan TAB.SR.12H 2 TABLET PO ×2 (08:30→22:48)
[2023-05-25] MEDS: Atenolol 50 MG Tablet PO (08:30)
--- NOTE | 2023-05-25 09:44 | PN.CC_ITS ---
Assessment & Plan Assessment/Plan (1) Hypoxia: PLAN: Plan RECOMMENDATIONS: 1. Wean supplemental oxygen to maintain saturations at or above 90%. 2. Continue bronchodilator therapy and steroids as ordered. 3. Await results of thoracentesis 4. Orders for pleural fluid studies have been placed. 5. Continue appropriate DVT prophylaxis. 6. Continue nicotine replacement therapy. 7. Perform ambulatory oximetry study prior to consideration for discharge home. IMPRESSIONS: 1. Hypoxemia The patient was initially admitted to the hospital following her EBUS procedure on May 22. Unfortunately, she was able to be weaned from oxygen following the procedure. She has extrinsic compression of her bronchus intermedius which is compromising distal airflow to her right middle and lower lobes. Clinical suspicion is pleural effusion is worsening this extrinsic compression leading to poor right lower lobe VQ match. High clinical suspicion for baseline obstructive lung disease. For this reason, it is reasonable to co ntinue scheduled bronchodilator therapy and IV steroids. Continue to wean supplemental oxygen to maintain saturations at or above 90%. Await ultrasound- guided thoracentesis today with pleural fluid analysis. 2. 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 The patient will follow-up in the pulmonary medicine clinic next week for final review of her pathology results and to discuss potential treatment options. If found to be stage IV with positive pleural fluid studies for cytology, may be candidate for endobronchial stenting. This would be evaluated as an outpatient. 3. Nicotine dependency Outpatient PFTs are pending. Continue bronchodilator therapy for now, along with nicotine replacement therapy. This note was generated with [employer] dictation software. It may contain incorrect words, spelling, and punctuation that were not noted in checking the note before signing. Subjective Subjective Patient did okay overnight. Patient subjectively feels unchanged compared to previous. Patient does have a cough, but reports little improvement. No hemoptysis has been reported. Patient still requiring significant amounts of supplemental oxygen to maintain saturations Objective Data Objective Data Vital Signs: Vital Signs Temp Pulse Resp BP Pulse Ox O2 Del Method O2 Flow Rate 37.1 C 82 22 H 162/87 H 94 High Flow 8 05/25/23 08:00 05/25/23 08:00 05/25/23 08:00 05/25/23 08:00 05/25/23 08:00 05/25/23 08:00 05/25/23 08:00 FiO2 8 05/24/23 14:00 Oxygen Flow Rate (L/min) [ 7 AMBULATING with Oxygen #2] Oxygen Flow Rate (L/min) [ 5 AMBULATING with Oxygen #1] Oxygen Flow Rate (L/min) [At 5 REST with Oxygen] Oxygen Flow Rate (L/min) 8 Oxygen Delivery Method High Flow Weight: 63.458 kg Body Mass Index (BMI) 24.7 Intake & Output: Intake and Output for Last 24 Hours 05/23/23 05/24/23 05/25/23 23:59 23:59 23:59 Intake Total 1168.75 / 1668.75 1450 / 1950 700 / 700 Balance 1168.75 / 1668.75 1450 / 1950 700 / 700 Lab / Micro Data Attestation: I reviewed the patient's lab results. 05/25/23 05:42 05/25/23 05:42 Labs: Laboratory Results - last 24 hr 05/24/23 09:30: PT 14.8, INR 1.2, APTT 27.1 05/25/23 05:42: WBC 19.8 H, RBC 4.67, Hgb 13.5, Hct 43.1, MCV 92.3, MCH 28.9, MCHC 31.3 L, RDW Std Deviation 47.6 H, RDW Coeff of Alyssa 14.1, Plt Count 376, MPV 10.3, Immature Gran % (Auto) 1.200 H, Neut % (Auto) 90.4 H, Lymph % (Auto) 4.9 L , [place] % (Auto) 3.3, Eos % (Auto) 0.0, Baso % (Auto) 0.2, Absolute Neuts (auto) 17.9 H, Absolute Lymphs (auto) 0.97, Nucleated RBC % 0, Sodium 138, Potassium 4.2, Chloride 104, Carbon Dioxide 29.0, Anion Gap 5, BUN 28 H, Creatinine 0.59, Estim Creat Clear Calc 40.83, Est GFR (MDRD) Af Amer 129, Est GFR (MDRD) Non-Af 106, BUN/Creatinine Ratio 47.7 H, Glucose 134 H, Calcium 9.1, Lactate Dehydrogenase 241, Total Protein 7.2, Globulin 4.4 H, Albumin/Globulin Ratio 0.6 L Micro: Microbiology 07/30/23 07:15 Mucosa - Nasopharyngeal Respiratory Panel (PCR) - Final 05/24/23 07:45 Nasal Secretion SARS-CoV-2 Antigen (Rapid) - Final Physical Exam Const alert, oriented x3 and no apparent distress General Appearance: cooperative HEENT normocephalic and head/scalp atraumatic HEENT Narrative: Nasal cannula in place Eyes PERRL, EOMs intact bilaterally and conjunctivae normal Neck supple General: trachea midline Chest inspection of chest normal Resp normal respiratory effort Auscultation: diminished lung sounds; Negative for rales, rhonchi or wheezes Cardio regular rate, regular rhythm, no murmurs, no rub and no gallops GI normal to inspection, nondistended, normoactive bowel sounds Extremity no clubbing, cyanosis or edema Skin no rashes or lesions noted General Skin Exam: no breakdown Neuro CN's II-XII intact bilaterally, moves all extremities, no focal motor deficits and no sensory deficits noted Psych cooperative and affect normal Charges/Coding Visit Charges Inpatient E&M: 37721 Subs Hosp L3
[2023-05-25] MEDS: Ensure Plus High Protein 120 ML LIQUID PO ×3 (10:46→22:48)
--- NOTE | 2023-05-25 13:17 | CASEMGMT ---
Social Work SW assisted pt in completing POA for healthcare, pt put her sister and son as POA and alternate. SW gave pt the original and copies, and copy placed on chart. AMERICA Reece
--- NOTE | 2023-05-25 13:33 | CASEMGMT ---
Social Work Pt completed POA w/SW, and asked her sister to bring in LW. AMERICA Reece
[2023-05-25] MEDS: Lidocaine 2% (20 ml mdv) 20 ML Vial INFILT (13:50)
--- NOTE | 2023-05-25 13:55 | RAD_ITS ---
STUDY: X-RAY CHEST REASON FOR EXAM: Female, 72 years old. Post thoracentesis TECHNIQUE: AP inspiration and expiration views. COMPARISON: Comparison is made with prior study dated May 23, 2023. FINDINGS: The patient is status post right thoracentesis. No evidence of a pneumothorax. Persistent right infrahilar consolidation and/or mass. RAD/Chest Insp/Exp 2 View IMPRESSION: No evidence of pneumothorax on the post right thoracentesis radiographs. Electronically Signed: Stiven Philip MD at 14:29 EDT ,
--- NOTE | 2023-05-25 14:15 | PN.HOSP_ITS ---
Reason for Visit Reason for Visit: Diagnoses Hypoxemia (05/23/23) Other nonspecific abnormal finding of lung field (05/23/23) Subjective Subjective Patient seen status post thoracentesis, reports not coughing as much and her breathing actually feels a little bit better Objective Data Objective Data Vital Signs: Vital Signs Temp Pulse Resp BP Pulse Ox O2 Del Method O2 Flow Rate 98.7 F 66 22 H 162/87 H 94 High Flow 8 05/25/23 08:00 05/25/23 12:47 05/25/23 12:47 05/25/23 08:00 05/25/23 08:00 05/25/23 08:00 05/25/23 08:00 FiO2 8 05/24/23 14:00 Oxygen Flow Rate (L/min) [ 7 AMBULATING with Oxygen #2] Oxygen Flow Rate (L/min) [ 5 AMBULATING with Oxygen #1] Oxygen Flow Rate (L/min) [At 5 REST with Oxygen] Oxygen Flow Rate (L/min) 8 Oxygen Delivery Method High Flow Weight: 63.458 kg Body Mass Index (BMI) 24.7 Intake & Output: Intake and Output for Last 24 Hours 05/23/23 05/24/23 05/25/23 23:59 23:59 23:59 Intake Total 1168.75 / 1668.75 1450 / 1950 700 / 700 Balance 1168.75 / 1668.75 1450 / 1950 700 / 700 Lab / Micro Data 05/25/23 05:42 05/25/23 05:42 Labs: Laboratory Results - last 24 hr 05/25/23 05:42: WBC 19.8 H, RBC 4.67, Hgb 13.5, Hct 43.1, MCV 92.3, MCH 28.9, MCHC 31.3 L, RDW Std Deviation 47.6 H, RDW Coeff of Alyssa 14.1, Plt Count 376, MPV 10.3, Immature Gran % (Auto) 1.200 H, Neut % (Auto) 90.4 H, Lymph % (Auto) 4.9 L , [place] % (Auto) 3.3, Eos % (Auto) 0.0, Baso % (Auto) 0.2, Absolute Neuts (auto) 17.9 H, Absolute Lymphs (auto) 0.97, Nucleated RBC % 0, Sodium 138, Potassium 4.2, Chloride 104, Carbon Dioxide 29.0, Anion Gap 5, BUN 28 H, Creatinine 0.59, Estim Creat Clear Calc 40.83, Est GFR (MDRD) Af Amer 129, Est GFR (MDRD) Non-Af 106, BUN/Creatinine Ratio 47.7 H, Glucose 134 H, Calcium 9.1, Lactate Dehydrogenase 241, Total Protein 7.2, Globulin 4.4 H, Albumin/Globulin Ratio 0.6 L Micro: Microbiology 05/24/23 07:15 Mucosa - Nasopharyngeal Respiratory Panel (PCR) - Final 05/24/23 07:45 Nasal Secretion SARS-CoV-2 Antigen (Rapid) - Final Physical Exam Narrative General: Alert, oriented, thin HEENT: Atraumatic, normocephalic Eyes: Anicteric, normal conjunctiva, extraocular movements grossly intact Neck: Supple Respiratory: Scattered wheezes and diffusely coarse, pursed lips, slight increase in respiratory effort Cardiovascular: Regular rate GI: Soft, nontender, nondistended Extremities: No edema Musculoskeletal: Moving all extremities Neuro: No overt focal neurological deficits Skin: No rashes appreciated Psych: Cooperative Assessment & Plan Assessment/Plan (1) Hilar mass: (2) Hypoxia: PLAN: Plan This 72-year-old female being admitted for hypoxia after EBUS. #Hypoxia s/p EBUS preformed d/t R hilar mass w/mediastinal adenopathy suspicious for cancer -Post op had acute hypoxic resp failure and pleural effusion respiratory failure and right moderate pleural effusion, small left pleural effusion with underlying atelectasis: [facility] He was showed mediastinal adenopathy, extrinsic compression in the bronchus intermedius. Preliminary cytology from right hilar lymph node sampling suggestive of non-small cell carcinoma. DuoNeb 1 dose now then as needed for shortness of breath. Mucinex DM, incentive spirometry/Pep. Wean oxygen. Home qualification oxygen testing before discharge. Discussed with Dr. Youngblood for overnight admission as an observation. 05/23: Patient required 6 L of oxygen. Continuing incentive spirometry and Pep. On Mucinex DM for cough. Try to wean off oxygen. Continue bronchodilator on IV steroid. 05/24: Patient requiring 8 L of oxygen at home. Repeat chest x-ray 05/23 shows similar right hilar mass with moderate right pleural effusion and small left effusion with bibasilar atelectasis similar to the recent CT findings. Ultrasound of the thoracocentesis ordered for tomorrow a.m. along with labs. Continue above treatment including bronchopulmonary hygiene. 2. Clinical suspicion of COPD: Patient has chronic severe persistent cough with shortness of breath and smoking history since teenage suggestive of COPD. Never had PFT. PFTs ordered as an outpatient. 05/23: Possible COPD exacerbation with increased hypoxia, shortness of breath and cough: Patient on bronchodilator, IV Solu-Medrol, and bronchopulmonary hygiene. 05/24: COPD exacerbation:Rapid SARS-CoV-2 antigen negative. Respiratory panel negative. Does not seem infectious cause of hypoxia. 3. Hypertension: Patient on atenolol continued. Patient had 2D echo on 04/26 reported EF 60%, moderate pericardial effusion no echo findings history of cardiac tamponade. 1-2+ TR. PASP 44 mmHg. 4. Increased left leg swelling: Patient had venous duplex on 05/11/2023 reported no evidence of left lower extremity DVT. No PE was found on recent CTA chest. VTE prophylaxis moderate risk: Lovenox 40 mg subcu daily. Living will/advanced directive/end of life care: Patient does not have living will or advanced directive. She does not have diabetes. Power of regulatory attorney for health. After discussion of benefits/risks procedures involved with full code, DNR CC arrest and DNR CC, the patient opted for DNRCC arrest with no intubation. Patient patient is very clear that she does not want artificial life support including intubation, tube feed, ventilator and/chest compression, central venous catheter, vasopressor and DC shock if needed
[2023-05-25 14:24] LABS: Cytology, Body Fluid / CSF SEE PATHOLOGY REPORT
[2023-05-25 14:57] LABS: Auto B Fluid Analyzer BKGD Ct COUNTS W/IN LIMITS (W/IN LIMITS); Source- Body Fluid THORACENTESIS
[2023-05-25 14:58] LABS: Appearance/Body Fluid SL CLDY; Body Fluid Mononuclear WBC % 97.6 %; Body Fluid Total Cells Counted 1.374 10^3/ul; Color/Body Fluid YELLOW; White Blood Count/Body Fluid 1.318 10^3/uL
[2023-05-25 14:59] LABS: Body Fluid Mononuclear WBC # 1.287 10^3/uL; Body Fluid Polynuclear WBC # 0.031 10^3/uL; Body Fluid Polynuclear WBC % 2.4 %
[2023-05-25 15:31] LABS: Red Cell Count/Body Fluid 455 /mm3
[2023-05-25 15:34] LABS: Body Fluid QC Type(s) BF1Q,BF2Q; Lymphocytes 87 %; Macrophages 1 %; Mesothelial Cells 3 %; Monocytes 5 %; Neutrophil (Segs) 4 %
[2023-05-25 16:16] LABS: LDH,Body Fluid 105 Units/l (Not Establ.); Protein, Body Fluid 2.4 g/dL (Not Establ.)
[2023-05-26 04:53] VITALS: BP 150/95; PULSE 74; RESP 18; TEMP 36.7; O2SAT 95
[2023-05-26] MEDS: Methylprednisolone Sod Succ 40 MG/ML VIAL IV (05:40)
[2023-05-26] MEDS: BMX LIQUID 180 ML 15 ML PO (05:44)
[2023-05-26 06:05] LABS: Absolute Lymphocyte Count 0.92 X10^3/uL (0.83-4.51); Absolute Neutrophil Count 13.6 X10^3/uL (2.0-7.7); Basophil# 0.02 X10^3/uL; Basophil% 0.1 % (0-1); Hematocrit 44.1 % (37-47); Hemoglobin 14.3 g/dL (12.0-15.0); Lymphocyte # 0.92 X10^3/ul (0.83-4.51); Mean Corp Hgb Conc 32.4 g/dL (32-36); Mean Corpuscular Hgb 29.5 pg (27.0-32.0); Mean Corpuscular Volume 91.1 fL (81-99); Mean Platelet Vol. 10.4 fl (6.2-12.0); Monocyte# 0.56 X10^3/uL; Monocyte% 3.7 % (0-10); NRBC Flagged by Analyzer 0 % (0-5); Neutrophil # 13.58 X10^3/uL (2.7-7.7); Neutrophil % 89.2 % (47-70); Platelet Count 341 K/mm3 (150-450); RBC Distribution Width CV 14.3 % (11.6-14.6); RBC Distribution Width SD 47.2 fl (35.1-43.9); Red Blood Count 4.84 M/mm3 (4.2-5.4); White Blood Count 15.2 K/mm3 (4.4-11.0)
[2023-05-26 06:35] LABS: ALB/GLOB Ratio 0.6 RATIO (0.9-2.4); AST(SGOT) 19 U/L (15-37); Alanine Aminotransfer ALT/SGPT 23 U/L (13-56); Albumin, Serum 2.6 g/dL (3.2-5.0); Alkaline Phosphatase 73 U/L (45-117); Anion Gap 4 (5-15); BUN 29 mg/dL (7-18); BUN/Creat Ratio 47.5 RATIO (10-20); Calcium,Total 8.7 mg/dL (8.5-10.1); Chloride 105 mmol/L (98-107); Creatinine, Serum 0.61 mg/dL (0.55-1.02); EST Glomerular Filtration Rate 102 mL/min (>60); Est Glom Filt Rate - Afr Amer 123 mL/min (>60); Estimated Creatinine Clearance 40.83 ml/min; Glucose 134 mg/dL (74-106); Potassium 4.1 mmol/L (3.5-5.1); Protein, Total 6.6 g/dL (6.4-8.2); Sodium Level 139 mmol/L (136-145)
[2023-05-26 07:30] VITALS: PULSE 79; RESP 20; O2SAT 96
[2023-05-26] MEDS: Ipratropium/Albuterol Sulfate 3 ML AMPUL.NEB INHALATION (07:30)
[2023-05-26 08:04] VITALS: BP 164/97; PULSE 72; RESP 18; TEMP 36.8; O2SAT 94
--- NOTE | 2023-05-26 08:25 | PN.CC_ITS ---
Assessment & Plan Assessment/Plan (1) Hypoxia: PLAN: Plan RECOMMENDATIONS: 1. Walking oximetry prior to discharge. Wean supplemental oxygen to maintain saturations at or above 90%. 2. Continue bronchodilator therapy. Okay to discharge on a 12-day steroid taper 3. Likely needs repeat x-ray in 2 to 4 weeks to assess for reaccumulation 4. Follow-up in outpatient office when formal results are available 5. Continue appropriate DVT prophylaxis. 6. Continue nicotine replacement therapy. 7. Okay to discharge from a pulmonary perspective IMPRESSIONS: 1. Hypoxemia The patient was initially admitted to the hospital following her EBUS procedure on May 22. Unfortunately, she was able to be weaned from oxygen fo llowing the procedure. She has extrinsic compression of her bronchus intermedius which is compromising distal airflow to her right middle and lower lobes. Clinical suspicion is pleural effusion is worsening this extrinsic compression leading to poor right lower lobe VQ match. Patient has responded well to thoracentesis with 1.1 L of transudative fluid removal. High clinical suspicion for baseline obstructive lung disease. For this reason, it is reasonable to continue scheduled bronchodilator therapy. Patient to be transition to prednisone therapy and wean over the next 12 days. Continue to wean supplemental oxygen to maintain saturations at or above 90%. 2. 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 The patient will follow-up in the pulmonary medicine clinic next week for final review of her pathology results and to discuss potential treatment options. If found to be stage IV with positive pleural fluid studies for cytology, may be candidate for e ndobronchial stenting. This would be evaluated as an outpatient. 3. Nicotine dependency Outpatient PFTs are pending. Continue bronchodilator therapy for now, along with nicotine replacement therapy. Patient is okay to complete PFT as previously scheduled This note was generated with [employer] dictation software. It may contain incorrect words, spelling, and punctuation that were not noted in checking the note before signing. Subjective Subjective Patient did well overnight. No acute issues were reported. Patient's oxygen requirements have significantly improved following thoracentesis. Patient is not reporting any pain at the site of the procedure. Objective Data Objective Data Vital Signs: Vital Signs Temp Pulse Resp BP Pulse Ox O2 Del Method O2 Flow Rate 36.8 C 72 18 164/97 H 94 Nasal Cannula 2 05/26/23 08:04 05/26/23 08:04 05/26/23 08:04 05/26/23 08:04 05/26/23 08:04 05/26/23 08:04 05/26/23 08:04 FiO2 8 05/24/23 14:00 Oxygen Flow Rate (L/min) [3] 8 Oxygen Flow Rate (L/min) [2] 8 Oxygen Flow Rate (L/min) [1 ( 8 Initial Baseline)] Oxygen Flow Rate (L/min) [ 7 AMBULATING with Oxygen #2] Oxygen Flow Rate (L/min) [ 5 AMBULATING with Oxygen #1] Oxygen Flow Rate (L/min) [At 5 REST with Oxygen] Oxygen Flow Rate (L/min) 2 Oxygen Delivery Method [3] Nasal Cannula Oxygen Delivery Method [2] Nasal Cannula Oxygen Delivery Method [1 ( Nasal Cannula Initial Baseline)] Oxygen Delivery Method Nasal Cannula Weight: 63.458 kg Body Mass Index (BMI) 24.7 Intake & Output: Intake and Output for Last 24 Hours 05/24/23 05/25/23 05/26/23 23:59 23:59 23:59 Intake Total 1450 / 1950 2300 / 2300 300 / 300 Output Total 1150 / 1150 Balance 1450 / 1950 1150 / 1150 300 / 300 Lab / Micro Data Attestation: I reviewed the patient's lab results. Lab results narrative: Patient's pleural studies are consistent with a transudate etiology 05/26/23 05:33 05/26/23 05:33 Labs: Laboratory Results - last 24 hr 05/25/23 14:18: Fluid Source THORACENTESIS, Fluid Color YELLOW, Fluid Appearance SL CLDY, Fluid WBC 1.318, Fluid RBC 455, Fluid Tot Cell Count 1.374 H, Fld Polynuclear WBCs # 0.031, Fld Polynuclear WBCs % 2.4, Fluid Mononuclear WBCs 1.287, Fld Mononuclear WBCs % 97.6, Fluid Neutrophils 4, Fluid Lymphocytes 87, Fluid Monocytes 5, Fluid Macrophages 1, Fld Mesothelial Cells 3, Fl Pathologist Comment May follow, Fluid Glucose 167 H, Fluid Total Protein 2.4, Fluid LDH 105, Fluid Comment 2 SEE COMMENT 05/26/23 05:33: WBC 15.2 H, RBC 4.84, Hgb 14.3, Hct 44.1, MCV 91.1, MCH 29.5, MCHC 32.4, RDW Std Deviation 47.2 H, RDW Coeff of Alyssa 14.3, Plt Count 341, MPV 10.4, Immature Gran % (Auto) 1.000 H, Neut % (Auto) 89.2 H, Lymph % (Auto) 6.0 L , [place] % (Auto) 3.7, Eos % (Auto) 0.0, Baso % (Auto) 0.1, Absolute Neuts (auto) 13.6 H, Absolute Lymphs (auto) 0.92, Nucleated RBC % 0, Sodium 139, Potassium 4.1, Chloride 105, Carbon Dioxide 30.0, Anion Gap 4 L, BUN 29 H, Creatinine 0.61, Estim Creat Clear Calc 40.83, Est GFR (MDRD) Af Amer 123, Est GFR (MDRD) Non-Af 102, BUN/Creatinine Ratio 47.5 H, Glucose 134 H, Calcium 8.7, Total Bilirubin 0.60, AST 19, ALT 23, Alkaline Phosphatase 73, Total Protein 6.6, Albumin 2.6 L, Globulin 4.0, Albumin/Globulin Ratio 0.6 L Micro: Microbiology 05/25/23 14:18 Fluid - Thoracentesis Fluid Gram Stain - Final 05/24/23 07:15 Mucosa - Nasopharyngeal Respiratory Panel (PCR) - Final 05/24/23 07:45 Nasal Secretion SARS-CoV-2 Antigen (Rapid) - Final Radiography Diagnostic Testing: Radiology Impression Thoracentesis Ultrasound 05/24/23 07:03 IMPRESSION: Ultrasound-guided right thoracentesis. Electronically Signed: Stiven Philip MD at 14:28 EDT , Chest X-Ray 05/25/23 13:55 IMPRESSION: No evidence of pneumothorax on the post right thoracentesis radiographs. Electronically Signed: Stiven Philip MD at 14:29 EDT , Physical Exam Const alert, oriented x3 and no apparent distress General Appearance: cooperative HEENT normocephalic and head/scalp atraumatic Eyes PERRL, EOMs intact bilaterally and conjunctivae normal Neck supple General: trachea midline Chest inspection of chest normal Resp normal respiratory effort Auscultation: diminished lung sounds; Negative for rales, rhonchi or wheezes Cardio regular rate, regular rhythm, no murmurs, no rub and no gallops GI normal to inspection, nondistended, normoactive bowel sounds Extremity no clubbing, cyanosis or edema Skin no rashes or lesions noted General Skin Exam: no breakdown Neuro CN's II-XII intact bilaterally, moves all extremities, no focal motor deficits and no sensory deficits noted Psych cooperative and affect normal Charges/Coding Visit Charges Inpatient E&M: 39331 Subs Hosp L2
[2023-05-26 08:53] VITALS: RESP 20; O2SAT 96
--- NOTE | 2023-05-26 10:08 | DCINST_ITS ---
Discharge Instructions Diet Discharge Diet: No restrictions Activity Discharge Activity: - (Return to normal 70 as tolerated) Follow Up Care Test Results: Test results from this visit will be discussed in further detail at your follow- up appointment, if applicable. Discharge Plan Admission Admit Date/Time: 05/23/23 16:21 Primary Reason for Your Visit: Low oxygen level Attending Provider: Cassandra Lay Primary Care Provider: [facility],Latrice Maharaj Consulting Providers: Julio Myers; Jake Youngblood; Haroon Menendez; Lang Martins; Anny Garcia NP; Eugenio Gutiérrez Instructions Patient Instructions: LAWANDA RN Thoracentesis Dc Additional Instructions / Restrictions: DISCHARGE INSTRUCTIONS PLEASE READ *Please take this with you to your next doctors appointment* -Please follow-up with pulmonology upon discharge. Please call their office to schedule hospital follow-up appointment upon discharge. -You will be discharged on a prednisone taper: -40mg daily x3 days -30mg daily x3 days -20mg daily x3 days -10mg daily x3 days -You will be discharged on amlodipine to help with your blood pressure. -You will likely need a repeat chest xray in 2-4 weeks to assess for reaccumulation of fluid. Please call your primary care physician or lung doctor to obtain imaging order -You will be discharged with prescription for Spiriva for which you will take 2 puffs daily and albuterol 1 to 2 puffs every 4-6 hours as needed for shortness of breath or wheezing. If he have to use the albuterol daily or more than once in a day please call your primary care physician or lung doctor for further instructions as he may need additional inhalers -He will be assessed for oxygen needs prior to discharge -Please call your primary care provider's office upon discharge to schedule a hospital follow up within 1 week. -For any concerning signs or symptoms please call 911 or proceed to the nearest emergency department Discharge Orders/Prescriptions Prescriptions: New amlodipine 2.5 mg Tablet 2.5 mg PO DAILY 30 Days Qty: 30 0RF prednisone 20 mg Tablet See Taper PO BREAKFAST Qty: 15 0RF Taper: Prednisone Taper 40 mg WITH BREAKFAST for 3 Days and 0 Hour 30 mg WITH BREAKFAST for 3 Days and 0 Hour 20 mg WITH BREAKFAST for 3 Days and 0 Hour 10 mg WITH BREAKFAST for 3 Days and 0 Hour Spiriva Respimat 2.5 mcg/actuation mist 2 puff inhalation DAILY Qty: 4 0RF albuterol sulfate 90 mcg/actuation HFA aerosol inhaler See Rx Instructions .ROUTE .COMPLEX PRN (Reason: shortness of breath or wheezing) Qty: 8.5 0RF Rx Instructions: 1-2 puffs every 4-6 hours as needed for shortness of breath or wheezing Continued atenolol 50 mg tablet 50 mg PO DAILY Referrals / Follow Up: Julio Myers MD [Med Staff - Active Staff] - Within 2 Weeks ( -Please follow-up with pulmonology upon discharge. Please call their office to schedule hospital follow-up appointment upon discharge.) [facility],Latrice Maharaj [Primary Care Provider] - Within 1 Week Disposition Disposition (needs filled in before D/C Order can be placed): Home, Self Care
--- NOTE | 2023-05-26 10:12 | DS.PCM_ITS ---
Providers Date of Admission: 05/23/23 Date of Discharge: 05/26/23 Primary Care Physician: Lat[facility] Consultations 05/22/23 16:18 Consult: Warp Coiler / Pulmonary Medicine Routine Consulting Provider: [facility] Reason for Consult: Hypoxia following EBUS EMERGENT Consult: No MD Notified: Yes Date Notified: 05/22/23 Time Notified: 16:18 Method of Notification: Verbal Reason For Visit: HYPOXIA FOLLOW EBUS Diagnosis Discharge Diagnosis (1) Hypoxia: Status: Acute Code(s): R09.02 - Hypoxemia Plan #Right hilar mass, mediastinal adenopathy suspicious for cancer #postop acute hypoxic respiratory failure #right moderate pleural effusion, small left pleural effusion with underlying atelectasis: #Clinical suspicion of COPD #Possible COPD exacerbation with increased hypoxia, shortness of breath and cough: Patient on bronchodilator, IV Solu-Medrol, and #Hypertension: #Increased left leg swelling: Patient had venous duplex on 05/11/2023 reported no evidence of left lower extremity DVT. No PE was found on recent CTA chest. Medications at Discharge Home Medications atenolol 50 mg tablet 50 mg PO DAILY 05/14/23 albuterol sulfate 90 mcg/actuation aerosol inhaler See Rx Instructions .Route .COMPLEX PRN shortness of breath or wheezing #8.5 grams 05/26/23 amlodipine 2.5 mg tablet 2.5 mg PO DAILY 30 days #30 tabs 05/26/23 prednisone 20 mg tablet See Taper PO BREAKFAST #15 tabs 05/26/23 tiotropium bromide 2.5 mcg/actuation mist for inhalation (Spiriva Respimat) 2 puff inhalation DAILY #4 grams 05/26/23 Hospital Course Procedures Thoracentesis Summary of Care Provided Minutes Spent on Discharge: 35 Hospital Course: 72-year-old female with recently found right hilar mass, history of tobacco use who presented to [facility] 05/22/2023 for bronchoscopy due to the right hilar mass and mediastinal adenopathy suspicious for cancer. Patient had hypoxia post EBUS and had pulse ox of 94% on 4 L of O2 and was therefore admitted to the hospital. It was felt that her hypoxia was secondary to a combination of extrinsic compression from her mass which compromised airflow to the right middle and lower lobes as well as patient's pleural effusion leading to a VQ mismatch on top of high clinical suspicion of baseline obstructive lung disease. Patient improved with bronchodilators and IV steroids and subsequently had ultrasound-guided thoracentesis 05/25 with significant improvement of her oxygenation and respiratory status afterwards. Final studies pending from her thoracentesis and she will follow with pulmonology after discharge. Patient feeling much better and has minimal O2 requirement compared to before thoracentesis. Discussed with pulm and reviewed note, patient okay for d ischarge. Discharge instructions as follows: DISCHARGE INSTRUCTIONS PLEASE READ *Please take this with you to your next doctors appointment* -Please follow-up with pulmonology upon discharge. Please call their office to schedule hospital follow-up appointment upon discharge. -You will be discharged on a prednisone taper: -40mg daily x3 days -30mg daily x3 days -20mg daily x3 days -10mg daily x3 days -You will be discharged on amlodipine to help with your blood pressure. -You will likely need a repeat chest xray in 2-4 weeks to assess for reaccumulation of fluid. Please call your primary care physician or lung doctor to obtain imaging order -You will be discharged with prescription for Spiriva for which you will take 2 puffs daily and albuterol 1 to 2 puffs every 4-6 hours as needed for shortness of breath or wheezing. If he have to use the albuterol daily or more than once in a day please call your primary care physician or lung doctor for further instructions as he may need additional inhalers -He will be assessed for oxygen needs prior to discharge -Please call your primary care provider's office upon discharge to schedule a hospital follow up within 1 week. -For any concerning signs or symptoms please call 911 or proceed to the nearest emergency department -Please refrain from any/all tobacco use. Physical Exam Narrative General: Alert, oriented, thin HEENT: Atraumatic, normocephalic Eyes: Anicteric, normal conjunctiva, extraocular movements grossly intact Neck: Supple Respiratory: Respiratory effort improved, lungs much more clear with minimal wheezing and rhonchi today Cardiovascular: Regular rate GI: Soft, nontender, nondistended Extremities: No edema Musculoskeletal: Moving all extremities Neuro: No overt focal neurological deficits Skin: No rashes appreciated Psych: Cooperative Weight / BMI Weight Weight: 63.458 kg Body Mass Index (BMI) 24.7 ABG / Lab / Microbiology Data 05/26/23 05:33 05/26/23 05:33 Laboratory: Laboratory Results - last 24 hr 05/25/23 14:18: Fluid Source THORACENTESIS, Fluid Color YELLOW, Fluid Appearance SL CLDY, Fluid WBC 1.318, Fluid RBC 455, Fluid Tot Cell Count 1.374 H, Fld Polynuclear WBCs # 0.031, Fld Polynuclear WBCs % 2.4, Fluid Mononuclear WBCs 1.287, Fld Mononuclear WBCs % 97.6, Fluid Neutrophils 4, Fluid Lymphocytes 87, Fluid Monocytes 5, Fluid Macrophages 1, Fld Mesothelial Cells 3, Fl Pathologist Comment May follow, Fluid Glucose 167 H, Fluid Total Protein 2.4, Fluid LDH 105, Fluid Comment 2 SEE COMMENT 05/26/23 05:33: WBC 15.2 H, RBC 4.84, Hgb 14.3, Hct 44.1, MCV 91.1, MCH 29.5, MCHC 32.4, RDW Std Deviation 47.2 H, RDW Coeff of Alyssa 14.3, Plt Count 341, MPV 10.4, Immature Gran % (Auto) 1.000 H, Neut % (Auto) 89.2 H, Lymph % (Auto) 6.0 L , [place] % (Auto) 3.7, Eos % (Auto) 0.0, Baso % (Auto) 0.1, Absolute Neuts (auto) 13.6 H, Absolute Lymphs (auto) 0.92, Nucleated RBC % 0, Sodium 139, Potassium 4.1, Chloride 105, Carbon Dioxide 30.0, Anion Gap 4 L, BUN 29 H, Creatinine 0.61, Estim Creat Clear Calc 40.83, Est GFR (MDRD) Af Amer 123, Est GFR (MDRD) Non-Af 102, BUN/Creatinine Ratio 47.5 H, Glucose 134 H, Calcium 8.7, Total Bilirubin 0.60, AST 19, ALT 23, Alkaline Phosphatase 73, Total Protein 6.6, Albumin 2.6 L, Globulin 4.0, Albumin/Globulin Ratio 0.6 L Microbiology: Microbiology 05/25/23 14:18 Fluid - Thoracentesis Fluid Gram Stain - Final 05/25/23 14:18 Fluid - Thoracentesis Fluid Body Fluid Culture - Preliminary No growth-Final to follow 05/24/23 07:15 Mucosa - Nasopharyngeal Respiratory Panel (PCR) - Final 05/24/23 07:45 Nasal Secretion SARS-CoV-2 Antigen (Rapid) - Final Radiography Diagnostic Testing: Radiology Impression Thoracentesis Ultrasound 05/24/23 07:03 IMPRESSION: Ultrasound-guided right thoracentesis. Electronically Signed: Stiven Philip MD at 14:28 EDT , Chest X-Ray 05/25/23 13:55 IMPRESSION: No evidence of pneumothorax on the post right thoracentesis radiographs. Electronically Signed: Stiven Philip MD at 14:29 EDT , D/C Instructions Discharge Diet: No restrictions Meaningful Use Info Meaningful Use Diagnoses (Choose all that apply): None applicable Discharge Plan Admission Admit Date/Time: 05/23/23 16:21 Primary Reason for Your Visit: Low oxygen level Attending Provider: Cassandra Lay [facility] Providers: Julio Myers; Jake Youngblood; Haroon Menendez; Lang Martins; Anny Garcia NP; Eugenio Gutiérrez Instructions Patient Instructions: RAD RN Thoracentesis Dc Additional Instructions / Restrictions: DISCHARGE INSTRUCTIONS PLEASE READ *Please take this with you to your next doctors appointment* -Please follow-up with pulmonology upon discharge. Please call their office to schedule hospital follow-up appointment upon discharge. -You will be discharged on a prednisone taper: -40mg daily x3 days -30mg daily x3 days -20mg daily x3 days -10mg daily x3 days -You will be discharged on amlodipine to help with your blood pressure. -You will likely need a repeat chest xray in 2-4 weeks to assess for reaccumulation of fluid. Please call your primary care physician or lung doctor to obtain imaging order -You will be discharged with prescription for Spiriva for which you will take 2 puffs daily and albuterol 1 to 2 puffs every 4-6 hours as needed for shortness of breath or wheezing. If he have to use the albuterol daily or more than once in a day please call your primary care physician or lung doctor for further instructions as he may need additional inhalers -He will be assessed for oxygen needs prior to discharge -Please call your primary care provider's office upon discharge to schedule a hospital follow up within 1 week. -For any concerning signs or symptoms please call 911 or proceed to the nearest emergency department Discharge Orders/Prescriptions Prescriptions: New amlodipine 2.5 mg Tablet 2.5 mg PO DAILY 30 Days Qty: 30 0RF prednisone 20 mg Tablet See Taper PO BREAKFAST Qty: 15 0RF Taper: Prednisone Taper 40 mg WITH BREAKFAST for 3 Days and 0 Hour 30 mg WITH BREAKFAST for 3 Days and 0 Hour 20 mg WITH BREAKFAST for 3 Days and 0 Hour 10 mg WITH BREAKFAST for 3 Days and 0 Hour Spiriva Respimat 2.5 mcg/actuation mist 2 puff inhalation DAILY Qty: 4 0RF albuterol sulfate 90 mcg/actuation HFA aerosol inhaler See Rx Instructions .ROUTE .COMPLEX PRN (Reason: shortness of breath or wheezing) Qty: 8.5 0RF Rx Instructions: 1-2 puffs every 4-6 hours as needed for shortness of breath or wheezing Continued atenolol 50 mg tablet 50 mg PO DAILY Referrals / Follow Up: Julio Myers MD [Med Staff - Active Staff] - Within 2 Weeks ( -Please follow-up with pulmonology upon discharge. Please call their office to schedule hospital follow-up appointment upon discharge.) [facility],Latrice Maharaj [Primary Care Provider] - Within 1 Week Disposition Disposition (needs filled in before D/C Order can be placed): Home, Self Care Charges/Coding Visit Charges Inpatient E&M: 69496 Disch Hosp >30min
[2023-05-26 10:15] VITALS: O2SAT 88; O2SAT 90; O2SAT 94; O2SAT 96
[2023-05-26] MEDS: Atenolol 50 MG Tablet PO (10:31)
[2023-05-26] MEDS: guaiFENesin/D-Methorphan TAB.SR.12H 2 TABLET PO (10:31)
[2023-05-26] MEDS: Ensure Plus High Protein 120 ML LIQUID PO (10:31)
[2023-05-26] MEDS: Enoxaparin 40 MG/0.4 ML Syringe SC (10:31)
[2023-05-26] MEDS: amLODIPine 2.5 MG Tablet PO (10:33)
--- NOTE | 2023-05-26 10:33 | CASEMGMT ---
Addendum entered by Shania Bingham 05/26/23 13:32: Hospitalist stated she ordered a different medication, tc to [facility] Retail pharmacy, spoke with Loki cost is $311.40. He is aware that RN CM will likely tube the Rx assist form. RN ALVIN into pt room, pt is aware of cost and states she cannot afford. She is agreeable to using Rx assist, tubed form at this time. Pt will roller picker through the drive through. Pt declines any need for homecare for SN or therapy in the home. Addendum entered by Shania Bingham 05/26/23 11:25: TC to [facility] Retail pharmacy, pt cost of meds without spiriva is $68.19. Spiriva is $632 but the hospital does not have it per Loki. RADHA ESQUIVEL into pt room, pt aware of oxygen needed with exertion. Reviewed homegoing oxygen instructions with pt, she verbalized understanding. Pt already has a pox. Discussed medications with pt, she states she can afford the meds without the spiriva. Asked if she would like the spiriva to be sent to another pharmacy, she denies and states she cannot afford it. Updated hospitalist who states she will order a different medication. Original Note: Pt qualifies for home oxygen at 2L with exertion. [place] [facility].
[2023-05-26] MEDS: Acetaminophen 325 MG Tablet 650 MG PO (10:40)
--- NOTE | 2023-05-26 12:29 | PHA.DC_ITS ---
Pharmacy [facility] has performed discharge medication reconciliation and counseling for this patient. 1. ALBUTEROL MDI 1-2 PUFFS Q4-6H PRN SOB/WHEEZING 2. AMLODIPINE 2.5MG PO DAILY 3. PREDNISONE 40MG PO BREAKFAST X 3 DAYS, THEN 30MG X3 DAYS, THEN 20MG X 3 DAYS, THEN 10MG X 3 DAYS The patient's discharge medication list was reviewed for discrepancies and discrepancies were resolved. The patient was counseled on the following discharge medications and changes in medications for homegoing were reviewed. The Reason for Use, instructions for use, and potential side effects were reviewed for all new medications. The patient's questions regarding all of their medications were answered. The patient was able to verbally demonstrate an understanding of their discharge medications. Medications at Discharge Home Medications atenolol 50 mg tablet 50 mg PO DAILY 05/14/23 albuterol sulfate 90 mcg/actuation aerosol inhaler See Rx Instructions .Route .COMPLEX PRN shortness of breath or wheezing #8.5 grams 05/26/23 amlodipine 2.5 mg tablet 2.5 mg PO DAILY 30 days #30 tabs 05/26/23 budesonide-formoterol HFA 160 mcg-4.5 mcg/actuation aerosol inhaler (Symbicort) 2 puff inhalation BID #10.2 grams 05/26/23 prednisone 20 mg tablet See Taper PO BREAKFAST #15 tabs 05/26/23
--- NOTE | 2023-05-26 13:26 | CHAPLAIN ---
Type of Pastoral Visit _x__ Initial Visit ___ Follow-up Visit ___ On-call Visit ___ General Patient Visit ___ Spiritual Assessment ___ Family Conference ___ Bereavement ___ Rapid Response ___ Code Blue ___ Other (describe below) Pastoral Care Referral From _x__ Patient ___ Family ___ Nurse ___ Physician ___ [employer] ___ Combo Welder ___ Other (describe below) Sacrament/Intervention _x__ Active listening ___ Anointing ___ Faith ___ Bereavement ___ Communion ___ Tasia exploration ___ ___ Life review _x__ Prayer ___ Reconciliation ___ Sacrament of Sick ___ Supportive presence ___ Wedding ___ Other (describe below) Pastoral Comments patient encouraged about going home and feeling better; pt reports having enough support even though she lives alone; pt is welcoming of spiritual care and prayer for support
[2023-05-26 13:30] VITALS: BP 155/74; PULSE 87; RESP 18; TEMP 36.8; O2SAT 94
[2023-05-26 15:38] LABS: Pathologist Comment/Body Fluid Reviewed
[2023-06-01 15:16] LABS: Glucose, Body Fluid 166 mg/dL (40-70)
== END 2023-05-26 13:18 | disposition home or self-care (01) | DRG 180 ==
LOC: EN 16:22 → MS3 16:22
PROVIDERS: Internal Medicine; Admitting Provider Internal Medicine Critical Care Medicine; Referring Provider Internal Medicine Critical Care Medicine; Visit Provider Internal Medicine
PROC: BB4BZZZ Ultrasonography of Pleura (ICD-10-PCS; principal; 2023-05-22 11:30)
DX: C34.01 Malignant neoplasm of right main bronchus (principal); J96.01 Acute respiratory failure with hypoxia; J44.1 Chronic obstructive pulmonary disease with (acute) exacerbation; J90 Pleural effusion, not elsewhere classified; J98.11 Atelectasis; F17.210 Nicotine dependence, cigarettes, uncomplicated; I10 Essential (primary) hypertension; E78.00 Pure hypercholesterolemia, unspecified; R60.0 Localized edema; Z66 Do not resuscitate; Z79.899 Other long term (current) drug therapy
CPT/HCPCS: 32555; 36415; 71046; 80048; 80053; 82945; 83615; 84156; 84157; 85025; 85610; 85730; 87070; 87075; 87205; 87426; 87633; 88108; 88161; 88172; 88305; 88313; 88341; 88342; 89050; 94640; 94668; 94762; 97802; J7120; A4216; J2405

== ENCOUNTER → 2023-05-28 | Outpatient (CLI) | payer MEDICARE, SELFPAY ==
--- NOTE | 2023-05-29 05:56 | PFTCOMP ---
COMPLETE PULMONARY FUNCTION TEST INTERPRETATION Brief HPI: Patient is a 72-year-old female, currently under the care of Dr. Youngblood, who presents to [facility] for complete pulmonary function tests secondary to diagnosis of hilar mass. Respiratory therapist reports good effort and reproducible results. Interpretation: Forced expiration spirometry shows a moderate large airways obstructive ventilatory defect with an FEV1 of 61% predicted. There is no significant bronchodilator response by strict ATS criteria. Spirograms are of good quality and plateau slowly, indicating slowly emptying areas of the lungs. The respiratory flow volume loop shows decreased expiratory flow rates at all lung volumes consistent with airway obstruction. Lung volumes by body plethysmography show a slightly decreased total lung capacity at 3.55 L, 74% predicted. All other lung volumes are within normal limits. Diffusion capacity by carbon monoxide is decreased at 43% predicted. The airway resistance is elevated. No previous pulmonary function tests were available for review. Impression: Irreversible moderate mixed ventilatory defect with a symmetric reduction diffusion capacity
== END | disposition home or self-care (01) ==
LOC: PSN 10:34
PROVIDERS: Referring Provider Internal Medicine Critical Care Medicine; Visit Provider Internal Medicine Critical Care Medicine
DX: F17.210 Nicotine dependence, cigarettes, uncomplicated (principal)
CPT/HCPCS: 94060; 94726; 94729

== ENCOUNTER → 2023-06-02 | Outpatient (CLI) | payer MEDICARE, SELFPAY ==
--- NOTE | 2023-06-02 07:30 | PET_ITS ---
EXAMINATION: FDG PET-CT INDICATIONS: A 72-year-old female with a history of carcinoma of the lung presenting for apparent initial staging examination. COMPARISON EXAMINATION: Previous FDG PET CT report dated 07/04/10. INDEX LESION SIZE SUV INTERPRETATION Right lower lung field, right lower lobe 6.7 cm 9.6 Fulfills quantitative criteria for viable neoplasm. Mediastinum, right thoracic perihilum 38.6 mm 15.1 Fulfills quantitative criteria for viable neoplasm. Bilateral retrocrural regions 13.4 mm largest 10.8 max Fulfills quantitative criteria for viable neoplasm. Appendicular, axial skeleton 24.0 max Fulfills quantitative criteria for viable neoplasm. TECHNIQUE: Following the intravenous administration of 13.20 mCi of F-18 deoxyglucose via the right antecubital fossa, multiplanar image acquisitions of the head, neck, chest, abdomen and pelvis to level of mid-thigh, lower extremities obtained at one hour post radiopharmaceutical administration contemporaneously interpreted with the current CT of the head, neck, chest, abdomen and pelvis to level of mid-thigh, lower extremities dated 06/02/23 via coregistration and previous FDG PET CT report dated 07/04/10 reveal: SERUM GLUCOSE LEVEL: 75 mg/dl. HEIGHT: 63 inches. WEIGHT: 131 lbs. FINDINGS: Head/Neck: There is no evidence of abnormal increased glucose metabolism in the pharyngeal mucosal space, parapharyngeal space, bilateral-lateral and anterior neck, hypopharynx and distribution of the laryngeal structures. The visualized portion of the cerebral cortical-subcortical structures demonstrate symmetric and preserved glucose metabolism. CHEST: Heterogeneous radiopharmaceutical concentration is defined in the right lower hemithorax pulmonary parenchyma, right lower lobe. The calculated maximum standard uptake value is 9.6. The largest metabolic, morphologic abnormality is 6.7 cm (AP). Facilitated FDG concentration is noted in the mediastinum, right thoracic perihilum. The calculated maximum standard uptake value is 15.1. The maximum axial diameter is 38.6 mm. Prominent radiopharmaceutical concentration is identified in the left ventricular myocardium commensurate with the [place]. Pertinent chest CT findings are as follows. Calcified density noted in the left upper lateral lung zone is ametabolic. A right hemithorax pleural effusion demonstrates no evidence of quantitatively significant increased FDG uptake. A large pericardial effusion reveals no evidence of increased tracer uptake. Parenchymal changes noted in the left lower posterior lung zone are ametabolic. Right and left axillary soft tissue densities reveal no evidence of increased tracer uptake. Several additional mediastinal soft tissue densities are ametabolic. There is atherosclerotic calcification defined in the thoracic aorta without evidence of dilatation-aneurysm formation. Coronary arterial calcification is observed. Abdomen/Pelvis: Bilateral upper abdominal retrocrural adenopathy demonstrates a calculated maximum standard uptake value of 10.8. The maximum axial diameter of the largest corresponding soft tissue density is 13.4 mm. Normal physiologic distribution of the radiopharmaceutical is apparent in the hepatic (2.5) and splenic parenchyma, both renal units, bladder and visualized intestinal tract. Diffuse radiopharmaceutical concentration is noted in all four quadrants of the abdomen and pelvis. Pertinent abdomen and pelvis CT findings are as follows. There is atherosclerotic calcification defined in the abdominal aorta without evidence of dilatation-aneurysm formation. Pelvic arterial calcification is observed. Bilateral subcentimeter inguinal soft tissue densities are nonglucose avid. Calcification is associated with the uterus, adnexal regions without evidence of increased tracer uptake. Skeletal: Increased radiopharmaceutical concentration is noted in the left proximal humerus, humeral head, left lateral chest wall-rib, The cervical and thoracic spine, the left hemipelvis inclusive of the left posterior iliac wing and bilateral acetabulum, the left proximal femur generating a calculated maximum standard uptake value of 24.0. PET/PET/CT Tumor Base -Thigh Init IMPRESSION: 1. ABNORMAL EXAMINATION INDICATIVE OF MALIGNANT-VIABLE NEOPLASM. 2. Increased radiopharmaceutical concentration manifest in the right lower lung field, right lower lobe fulfills quantitative criteria for malignant transformation. (Rivera et al, Journal of Nuclear Medicine, 32:1, 1991). 3. Facilitated uptake noted in the mediastinal structures and the right thoracic perihilum fulfills quantitative criteria for malignant transformation. 4. Enhanced tracer uptake noted in the bilateral retrocrural regions fulfills quantitative criteria for neoplasia. 5. Appendicular and axial skeletal hypermetabolic foci fulfills quantitative criteria for viable osseous neoplasm. (Domenica et al, Clinical Nuclear Medicine, 29:161, 2004). Electronic Signature Doc Barrera D.O. Accurate Quantification of SUVs for this report are calculated using the exclusive [employer]. ([place] Patent No. [id number] B2 [phone] [place] patent [phone]). Standardization and correction of the FDG SUV metric via [employer] technology allow for vendor non-specific objective quantitative examination comparison and optimization of the sensitivity and specificity of the FDG PET-CT examination. Electronically Signed: Doc Barrera, at 22:52 EDT ,
== END | disposition home or self-care (01) ==
PROVIDERS: Referring Provider Nurse Practitioner Acute Care; Visit Provider Nurse Practitioner Acute Care
DX: C34.11 Malignant neoplasm of upper lobe, right bronchus or lung (principal); R91.8 Other nonspecific abnormal finding of lung field
CPT/HCPCS: 78815; A9552

== ENCOUNTER → 2023-06-15 | Outpatient (CLI) | payer MEDICARE, SELFPAY ==
--- NOTE | 2023-06-15 12:46 | MRI_ITS ---
EXAM: MR HEAD WITHOUT AND WITH INTRAVENOUS CONTRAST CLINICAL INDICATION: initial staging NSCLC TECHNIQUE: Multiplanar and multisequence MR images of the brain were obtained without and with intravenous contrast. CONTRAST: 12 mL of IV Clariscan. COMPARISON: Whole body PET/CT fusion scan 06/02/2023. FINDINGS: BRAIN AND EXTRA-AXIAL SPACES: Faint T2 FLAIR hyperintensity across the pontine tegmentum are chronic white matter ischemic changes. No intra- or extra-axial hemorrhage. No intracranial mass or mass effect. Posterior fossa structures are unremarkable. Ventricles are appropriate for age. No hydrocephalus. Basal cisterns are patent. SELLA: Unremarkable. Normal sella turcica, pituitary gland, infundibular stalk, optic chiasm and hypothalamus. AUDITORY SYSTEM: Unremarkable. The internal auditory canals are patent. BONES/JOINTS: Enhancing expansile lytic bone metastases in the right parietal bone causing mild mass effect of the underlying brain parenchyma of the right central lobe. This enhances with contrast and containing small areas of cystic necrosis. There is also contrast enhancement of the underlying dura overlying the right cerebral hemisphere. SINUSES: Unremarkable as visualized. Clear. MASTOID AIR CELLS: Unremarkable as visualized. Clear. ORBITS: Unremarkable as visualized. Both globes, extraocular muscles, optic nerves and retrobulbar fat appear unremarkable. VASCULATURE: Unremarkable as visualized. Normal flow voids in the major intracranial circulation. MRI/Brain W/WO Contrast IMPRESSION: 4.2 x 2.7 x 3.9 cm enhancing expansile lytic metastases with small areas of cystic necrosis of the right parietal bone causing mild mass effect of the underlying central lobe of the right cerebral hemisphere with infiltration of the underlying enhancing dural membrane. Electronically Signed: Jose Boggs MD at 14:06 EDT ,
== END | disposition home or self-care (01) ==
LOC: MRI 12:28
PROVIDERS: Referring Provider Internal Medicine Hematology & Oncology; Visit Provider Internal Medicine Hematology & Oncology
DX: C34.91 Malignant neoplasm of unspecified part of right bronchus or lung (principal)
CPT/HCPCS: 70553; A9575